=== PATIENT | male | born 1970 | race Hispanic/Latino ===

== ENCOUNTER 2022-11-12 05:40 | Day surgery (SDC) | payer OTHER ==
[2022-11-10 11:15] LABS: Absolute Lymphocytes (CBC) 1.8 K/uL (0.7-4.9); Hematocrit 45.9 % (39.6-49.0); Lymphocytes % 21.3 % (15.3-44.8); MCV 92.4 fL (80-100); MPV 9.1 fL (7.6-11.3); RBC Red Blood Cell Count 4.97 M/uL (4.33-5.43)
--- NOTE | 2022-11-10 11:27 | RAD REPORT ---
EXAM DESCRIPTION: Viola King And Lat (2 Views)11/10/2022 11:15 am CLINICAL HISTORY: Preop the gallbladder surgery Hypertension COMPARISON: None FINDINGS: The lungs appear clear of acute infiltrate. Heart is normal size
[2022-11-10 11:33] LABS: Bilirubin Direct 0.1 mg/dL (0-0.2); Bilirubin Total 0.3 mg/dL (0.2-1.0); Potassium 4.4 mmol/L (3.5-5.1); Protein, Total 7.4 g/dL (6.4-8.2)
--- NOTE | 2022-11-10 14:55 | EKG ---
Test Date: 2022-11-10 Test Time: 10:52:03 Information Assurance Manager: BERTA MEASUREMENT RESULTS: Intervals: Rate: 73 [place]: 186 QRSD: 88 QT: 352 QTc: 387 [place]: P: 58 AZ: 186 QRS: 39 T: 53 INTERPRETIVE STATEMENTS: Normal sinus rhythm Normal ECG No previous ECG available for comparison Electronically Signed On 11-10-22 14:54:47 [employer] CAR [employer] by Vance Hoyt
[2022-11-12] MEDS ORDERED: NA CHLORIDE 0.9% 1,000 ML ONE (06:11)
[2022-11-12] MEDS ORDERED: CELECOXIB 100 MG CAPSULE ONE (07:05)
[2022-11-12] MEDS ORDERED: ACETAMINOPHEN 500 MG TAB ONE (07:06)
[2022-11-12] MEDS: CEFOXITIN SODIUM 1 GM/VIAL ONE ×2 (07:10→07:45)
[2022-11-12] MEDS ORDERED: ROCURONIUM 50 MG/5 ML VIAL IV ONE (07:14)
[2022-11-12] MEDS ORDERED: FENTANYL CITR 100 MCG/2 ML ONE (07:14)
[2022-11-12] MEDS ORDERED: MIDAZOLAM HCL 2 MG/2 ML INJ ONE (07:14)
[2022-11-12] MEDS ORDERED: propofoL 200 MG/20 ML VIAL IV ONE (07:14)
[2022-11-12] MEDS ORDERED: LIDOCAINE 1% MPF 5 ML VIAL ONE (07:15)
[2022-11-12] MEDS ORDERED: NS 0.9% VIAL 10 ML ONE (07:39)
[2022-11-12] MEDS ORDERED: dexAMETHasone 10 MG/ML VIAL ONE (07:51)
[2022-11-12] MEDS ORDERED: ONDANSETRON 4 MG/2 ML VIAL ONE (07:51)
[2022-11-12] MEDS ORDERED: KETOROLAC 30 MG/ML INJ ONE (07:51)
[2022-11-12] MEDS ORDERED: NEOSTIGMINE 1 MG/ML -5 ML ONE (08:00)
[2022-11-12] MEDS ORDERED: GLYCOPYRROLATE 0.2 MG/ML SYR ONE (08:00)
[2022-11-12] MEDS ORDERED: EPHEDRINE SULF 50 MG/ML VIAL ONE (08:04)
--- NOTE | 2022-11-12 08:09 | P.BOP ---
Preoperative diagnosis: acute cholecystitis, symptomatic cholelithiasis Postoperative diagnosis: same Primary procedure: Laparoscopic cholecystectomy Crester: ALLAN REYES ([employer]CH[employer]) Estimated blood loss: <10cc Specimen: gb Findings: as above Anesthesia: General Complications: None Transferred to: Recovery Room Condition: Good
[2022-11-12] MEDS: HYDROMORPHONE HCL 1 MG/ML INJ ONE ×2 (08:33→08:41)
[2022-11-12] MEDS ORDERED: HYDROCODONE/APAP 7.5/325 MG TAB ONE (09:23)
[2022-11-12 09:40] VITALS: BP 101/56; TEMP 98; O2SAT 97
--- NOTE | 2022-11-12 10:45 | OP ---
Date of Procedure: 11/12/2022 Surgeon: Vince Beasley MD Preoperative Diagnoses: Acute cholecystitis, symptomatic cholelithiasis. Postoperative Diagnoses: Acute cholecystitis, symptomatic cholelithiasis. Procedure: Laparoscopic cholecystectomy. Estimated Blood Loss: Less than 10 mL. Complications: None. Anesthesia: General plus local. Finding: As above. Indication: This is the case of a male, who comes to us with above diagnoses. Fully explained the b enefits, alternatives, and risks, which include, but not limited to infection, bleeding, damage to ad jacent structures, anesthesia complication, choledocholithiasis, bile leak, pancreatitis, IA, and ani n . He also understands this may not relieve any symptoms. He might need more than one surgica l intervention. We explained the surgery in Bahraini and Lao to him and his family member, his co maynor. He signed a consent. Procedure In Detail: The patient was brought to the operating room, placed in supine position. Anes thesia was done without complication. Abdominal area was prepped and draped in the usual sterile fas hion. Marcaine 0.5% was injected for local anesthetic followed by sharp incision of the skin in the infraumbilical region. Incision was carried down to fascia, which was opened under direct vision. P eritoneum was encountered, opened under direct vision. Vicryl #1 placed inside the fascia. Carmen t rocar was carefully introduced. Pneumoperitoneum was obtained. I placed 3 more trocars, 5 mm each o ne of them in the epigastric right upper quadrant area under direct visualization. This allowed me t o put a grasper in the fundus of the gallbladder, another grasper in the infundibulum, retracting the gallbladder in the inferolateral fashion, exposing the triangle of Calot, and obtaining critical vie w. Cystic duct and cystic artery were clearly isolated, free circumferentially and a connection betw een those and the gallbladder were clearly identified. I proceeded to ligate those by using at least 3 clips proximal, 1 clip distal, ligation in middle. Same was done with the cystic artery. No bile leak, no bleeding. The gallbladder was removed from liver using Bovie cauterizer and removed from a bdominal cavity using EndoCatch through the umbilical incision. The area was inspected once again. No bile leak, no bleeding. At that moment, I proceeded to remove the trocars under direct vision. D eflated the pneumoperitoneum. Closed the fascia with #1 Vicryl. Irrigated the subcutaneous tissue, closed that with 3-0 chromic and skin in a subcuticular fashion with 3-0 chromic and Steri-Strips on top. Sponge count, instrument counts correct. The patient tolerated the procedure well. The patien t was sent to recovery in stable condition. ZHOU/JILILAN Voice ID: [id number] Report ID: [id number]
--- NOTE | 2022-11-12 10:45 | DS ---
Diagnoses: Acute cholecystitis, symptomatic cholelithiasis. Procedure: Laparoscopic cholecystectomy. Disposition: Home. Activity: As tolerated. No heavy lifting. Plan: Followup in my office in 1 week. Call for appointment [phone]. Keep area dry for 48 hours, then may shower. Keep Steri-Strips intact. ZHOU/JILLIAN Voice ID: [id number] Report ID: [id number]
== END 2022-11-12 10:35 | disposition home or self-care (01) ==
LOC: PRE 05:40
PROVIDERS: ATTEND Surgery
PROC: 0FT44ZZ Resection of Gallbladder, Percutaneous Endoscopic Approach (ICD-10-PCS; principal; 2022-11-12 07:30)
DX: K80.10 Calculus of gallbladder with chronic cholecystitis without obstruction (principal)
CPT/HCPCS: 93005; 85025; 80048; 36415; 82150; 82947 ×2; 80076; 88304; 83690; 71046; 47562; J2704; J2001; J2250; J3010; J1100; A4216; J1170; J2710; J7030; J0694; J2405

== ENCOUNTER 2022-12-21 12:50 | Emergency (ER) | payer OTHER ==
--- OUTSIDE RECORDS SUMMARY | 2022-12-21 13:03 | XMS REPORT | Continuity of Care Document ---
:1970 Author Organization [facility] t Address [address] [place] [address] Care Team Providers Name Role Phone Unavailable Unavailable Unavailable Problems This patient has no known problems. Allergies, Adverse Reactions, Alerts This patient has no known allergies or adverse reactions. Medications This patient has no known medications. Procedures This patient has no known procedures. Encounters Start End Encounter Admission Attending Care Care Encounter Source Date/Time Date/Time Type Type Clinicians Facility Department ID 2022-12-03 2022-12-03 Outpatient [facility] [id number] Eduardo 13:55:02 13:55:02 [id number] F Stephen 2022-10-03 2022-10-03 Outpatient [facility] [id number] Eduardo 15:10:29 15:10:29 [id number] F Stephen Results Test Description Test Time Test Comments Results Result Comments Source COMPREHENSIVE METABOLIC PANEL 2022-07-10 05:57:55 Test Item Value Reference Range Interpretation Comme nts GLUCOSE (test code = 7) 113 MG/DL 70-99 H BUN (test code = 2208) 16 MG/DL 6-20 CREATININE (test code = 0.91 MG/DL 0.80-1.40 2213) eGFR (2020 CKD-EPI) (test 101 ML/MIN/1.73 >60 code = 67527) CALC BUN/CREAT (test code = 18 RATIO -2234) SODIUM (test code = 2231) 142 MEQ/L 133-146 POTASSIUM (test code = 4.4 MEQ/L 3.5-5.4 2227) CHLORIDE (test code = 2215) 102 MEQ/L 95-107 CARBON DIOXIDE (test code = 25 MEQ/L -2205) CALCIUM (test code = 2209) 9.9 MG/DL 8.5-10.5 PROTEIN, TOTAL (test code = 7.7 G/DL 6.1-8.3 2228) ALBUMIN (test code = 220) 5.1 G/DL 3.5-5.2 CALC GLOBULIN (test code = 2.6 G/DL 1.9-3.7 2239) CALC A/G RATIO (test code = 2.0 RATIO 1.0-2.6 2233) BILIRUBIN, TOTAL (test code 0.5 MG/DL See_Comment [Automated message] The = 2206) system which ge nerated this result transmit chaitanya reference range: <=1.2. T he reference range was not u sed to interpret this result as normal/abnormal . ALKALINE PHOSPHATASE (test 110 U/L 40-121 code = 2203) AST (test code = 2218) 27 U/L 9-50 ALT (test code = 2219) 29 U/L 5-50 UNLE SS OTHERWISE INDICATED, ALL TESTING PER FORMED [facility]IN[facility] PATH [facility], [facility]. [address] [place] [address] 97 LABORATORY DIRE CTOR: BANDAR DIAZ M.D. CLIA NUMBER [id number] [facility] [place]. [id number] HEMOGLOBIN [id number] 05:06:51 Test Item Value Reference Range Interpretation Comments HEMOGLOBIN A1c (test code = 22466) 6.1 % 4.2-5.6 H COMPREHENSIVE METABOLIC [id number] 06:12:23 Test Item Value Reference Range Interpretation Comments GLUCOSE (test code = 118 MG/DL 70-99 H 2216) BUN (test code = 12 MG/DL 6-20 2207) CREATININE (test 0.84 MG/DL 0.80-1.40 code = 2213) eGFR (2020 CKD-EPI) 106 >60 (test code = 69301) ML/MIN/1.73 CALC BUN/CREAT (test 14 RATIO 6-28 code = 2235) SODIUM (test code = 145 MEQ/L 312-693 4175) POTASSIUM (test code 4.0 MEQ/L 3.5-5.4 = 2227) CHLORIDE (test code 103 MEQ/L 95-107 = 2214) CARBON DIOXIDE (test 23 MEQ/L 19-31 code = 2206) CALCIUM (test code = 10.0 MG/DL 8.5-10.5 2209) PROTEIN, TOTAL (test 7.3 G/DL 6.1-8.3 code = 222) ALBUMIN (test code = 4.8 G/DL 3.5-5.2 2200) CALC GLOBULIN (test 2.5 G/DL 1.9-3.7 code = 2240) CALC A/G RATIO (test 1.9 RATIO 1.0-2.6 code = 2234) BILIRUBIN, TOTAL 0.5 MG/DL See_Comment [Automated message] (test code = 2206) The syste m which generated this result transmit chaitanya reference range : <=1.2. The refe rence range was not u sed to interpret th is result as normal/abnormal . ALKALINE PHOSPHATASE 111 U/L 40-121 (test code = 2203) AST (test code = 47 U/L 9-50 2217) ALT (test code = 55 U/L 5-50 H 2218) LIPID [id number] 06:12:23 Test Item Value Reference Range Interpretation Comments CHOLESTEROL (test 152 MG/DL <200 code = 2210) TRIGLYCERIDES (test 104 MG/DL <150 code = 2232) HDL CHOLESTEROL (test 60 MG/DL >39 code = 2220) CALC LDL CHOL (test 73 MG/DL <100 NOTE: C ALCULATED LDL code = 2237) IS BASED ON MICHAEL-ADAMS METHOD WHICHINCLUDES ADJUSTABLE TRIGLYCERIDE:VL DL CHOLESTEROL RAT IO.THIS FACTOR VARIES B Y MEASURED TRIGLY CERIDE AND NON-HDLCHOL ESTEROL CONCENTRATIONS WITH INCREASED CALCU LATED LDL SEENIN HIGH ER TRIGLYCERIDE OR LOWER NON-HDL SPECIME NS. FOR MOREINFORMATION , SEE CLIENT ANNOUNCE MENT AT [email or web address] RATIO LDL/HDL 1.22 RATIO <3.55 (test code = 2238) ALBUMIN/CREATININE RATIO, URINE, [id number] 04:51:12 Test Item Value Reference Range Interpretation Comments CREATININE, URINE, 209.6 MG/DL NOT ESTAB RANDOM (test code = 2071) ALBUMIN, URINE, 0.9 MG/DL NOT ESTAB RANDOM (test code = 85217) CALC ALBUMIN/CREAT, 4 MG/G <30 Note: RND (test code = Albumin/Cre atinine 72799) ratio reference interval reflec ts ADA and NKF guideli danielle. HEPATITIS PANEL, [id number] 04:30:11 Test Item Value Reference Range Interpretation Comments HEPATITIS A IgM (test NON-REACTIVE NON-REACTIVE code = 50253) HEPATITIS B CORE IgM NON-REACTIVE NON-REACTIVE (test code = 4644) HEPATITIS B SURF AG NON-REACTIVE NON-REACTIVE (test code = 2739) HEPATITIS C ANTIBODY NON-REACTIVE NON-REACTIVE (test code = 4675) INTERPRETATION (NOTE) Hepatitis A HEPATITIS A: (test serology shows no code = 2552) evidence of acu te hepatitis A. INTERPRETATION (NOTE) Hepatitis B HEPATITIS B: (test serology shows no code = 77803) evidence of ac tarun hepatitis B and no indication of exposure to hepatitis B vir us in the previous si xto eight months. INTERPRETATION (NOTE) Hepatitis C HEPATITIS C: (test serology shows no code = 35627) evidence of ex posure to hepatitisC v irus at this time. I t can take up to 12 m onths after exposure tothe hepatitis C vir us for antibodies to become detectab le in the blood in ce rtain patients. UNLES S OTHERWISE INDIC ATED, ALL TESTING PERFORMED [facility], [facility]. [address] [place] [id number] [place] [address] DIRECTOR: BANDAR DIAZ M.D. CLIA NUMBER [id number] [place] [id number] HEMOGLOBIN [id number] 03:33:23 Test Item Value Reference Range Interpretation Comments HEMOGLOBIN A1c (test 8.8 % 4.2-5.6 H AMERIC AN DIABETES code = 55364) ASSOCIATION IDELINES FOR HGB A1C: PREDIABETES/INC REASED RISK . . . . . . . 5.7 -6.4% DIAGNOSIS OF DI ABETES . . . . . . . . . >=6 .5% WITH CONFIRMATION OR APPROPRIATE SYMPTOMS NOTE: ASSAY MAY BE AFFECTED BY HEMOGLOBINOPATH IES (SICKLE CELL ANEMIA, S- C DISEASE, OTHERS) OR RIKI FICIALLY LOWERED BY DECR EASED RED CELL SURVIVAL ( HEMOLYTIC ANEMIAS, BLOOD LOSS, ETC.). CONSIDER ALTERN ATE TESTING OR LABORATORY C ONSULTATION.
--- NOTE | 2022-12-21 15:08 | RAD REPORT ---
EXAM DESCRIPTION: RAD - Foot Left 3 View - 12/21/2022 3:01 pm CLINICAL HISTORY: PAIN COMPARISON: No comparisons FINDINGS: Small calcaneal spurs. Mild soft tissue swelling is evident. No fracture or dislocation. N o aggressive marrow lesion.
--- NOTE | 2022-12-21 16:06 | RAD REPORT ---
EXAM DESCRIPTION: US - Extremity Venous Uni Ltd - 12/21/2022 3:55 pm CLINICAL HISTORY: PAIN Leg swelling and edema. COMPARISON: No comparisons FINDINGS: Left lower extremity venous system was interrogated with Doppler technique. Normal flow, c ompressibility and augmentation was noted. There is no DVT present. IMPRESSION: No evidence of left lower extremity deep venous thrombosis.
--- NOTE | 2022-12-21 16:39 | EDPHYS ---
Physician Documentation [facility] Name: Brad Desouza Age: 52 yrs Sex: Male : 1970 Arrival Date: 12/21/2022 Time: 12:52 Bed 11 Private MD: ED Physician Mahendra Oreilly HPI: 12/21 14:00 This 52 yrs old Male presents to ER via Ambulatory with complaints of Leg cp Swelling - redness, Foot Swelling. 14:00 The patient presents with pain, that is acute. The complaints affect the left heel and cp bottom of left foot. Context: resulted from an unknown cause, the patient can fully bear weight, the patient is able to ambulate, with mild difficulty, Problem is a result from a previous injury: No. Onset: The symptoms/episode began/occurred 4 day(s) ago. Modifying factors: the symptoms are aggravated by weight bearing. Associated signs and symptoms: Pertinent positives: calf tenderness, swelling, Pertinent negatives fever, rash. Treatment prior to arrival includes: no previous treatment. Historical: - Allergies: 13:51 No Known Allergies; vg1 - Home Meds: 13:51 Metformin Oral [Active]; Lisinopril Oral [Active]; vg1 - PMHx: 13:51 Diabetes mellitus; Hypertensive disorder; vg1 - Immunization history:: Client reports receiving the 2nd dose of the Covid vaccine, Flu vaccine is up to date. - Social history:: Smoking status: Patient denies any tobacco usage or history of. ROS: 14:05 Constitutional: Negative for body aches, chills, fever, poor PO intake. cp 14:05 Eyes: Negative for injury, pain, redness, and discharge. cp 14:05 Neck: Negative for stiffness. 14:05 Cardiovascular: Negative for chest pain, edema, palpitations. 14:05 Respiratory: Negative for cough, shortness of breath, wheezing. 14:05 Back: Negative for pain at rest, pain with movement. 14:05 MS/extremity: Positive for pain, tenderness, of the left foot, Negative for injury or acute deformity. 14:05 All other systems are negative. Exam: 14:10 Constitutional: The patient appears in no acute distress, alert, awake, comfortable, cp non-toxic, well developed, well nourished. 14:10 Head/Face: Normocephalic, atraumatic. cp 14:10 Cardiovascular: Rate: normal, Pulses: Pulses are 2+ in left dorsalis pedis artery. cp 14:10 Respiratory: the patient does not display signs of respiratory distress, Respirations: cp normal. 14:10 Back: pain, is absent, ROM is normal. 14:10 Musculoskeletal/extremity: Extremities: noted in the proximal plantar surface and heel of left foot: pain, tenderness, There is no evidence of erythema, no open wounds noted, skin dry and scaly, mild swelling noted. Vital Signs: 13:46 BP 121 / 66; Pulse 79; Resp 15; Temp 98.6(O); Pulse Ox 100% on R/A; Weight 81.65 kg; vg1 Pain 0/10; 15:00 BP 111 / 74; Pulse 75; Resp 20 S; Pulse Ox 99% on R/A; Pain 0/10; kc6 MDM: 13:54 Patient medically screened. cp 14:00 Differential diagnosis: closed fracture, contusion, cellulitis. cp 16:38 Data reviewed: vital signs, nurses notes, radiologic studies, plain films, ultrasound. cp 16:38 Consideration of Admission/Observation Escalation of care including cp admission/observation considered. I considered the following discharge prescriptions or medication management in the emergency department Medications were administered in the Emergency Department. See MAR. Test considered but Not performed: Labs: CBC, BMP. Historians other than the Patient: Family Member: sister provides history with community outreach coordinator used. Care significantly affected by the following chronic conditions: Diabetes, Hypertension. 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 12/21 14:47 Order name: Glucose, Ancillary Testing; Complete Time: 15:12 EDMS 12/21 13:47 Order name: US Extremity Venous Unilateral Ltd cp 12/21 13:47 Order name: XRAY Foot LEFT 3 View; Complete Time: 15:12 cp 12/21 14:10 Order name: Accucheck Blood Glucose; Complete Time: 14:35 cp Administered Medications: 16:47 Drug: Ibuprofen 800 mg Route: PO; kc6 16:47 Follow up: Response: No adverse reaction kc6 16:47 Drug: Acetaminophen 650 mg Route: PO; kc6 16:47 Follow up: Response: No adverse reaction kc6 Disposition Summary: 12/21/22 16:38 Discharge Ordered Location: Home cp Problem: new cp Symptoms: have improved cp Condition: Stable cp Diagnosis - Pain in left foot cp Followup: cp - With: Ho You DPM - When: 2 - 3 days - Reason: Recheck today's complaints Discharge Instructions: - Discharge Summary Sheet cp - Foot Pain cp Forms: - Medication Reconciliation Form cp - Thank You Letter cp - Antibiotic Education cp - Prescription Opioid Use cp Prescriptions: - Diclofenac Sodium 75 mg Oral Tablet Sustained Release - take 1 tablet by ORAL route 2 times per day; 30 tablet; Refills: 0, Product cp Selection Permitted Addendum: 12/23/2022 01:04 Co-signature as Attending Physician, Mahendra Oreilly MD I reviewed the patient's care r n provided by the Advanced Practice Provider and agree with the diagnosis and treatment plan. Signatures: Dispatcher [employer] Mahendra Mejia MD MD rn Page, Corey, PA PA cp Garcia, Victoria RN RN vg1 Geovanna Summers RN RN kc6
--- NOTE | 2022-12-21 16:39 | ER ---
Nurse's Notes [facility] Name: Brad Desouza Age: 52 yrs Sex: Male : 1970 Arrival Date: 12/21/2022 Time: 12:52 Bed 11 Private MD: Diagnosis: Pain in left foot Presentation: 12/21 13:46 Chief complaint: Patient states: Left foot swelling stating 'feels like knives" x 4 vg1 days. Coronavirus screen: Vaccine status: Patient reports receiving the 2nd dose of the covid vaccine. Client denies travel out of the [place] in the last 14 days. Ebola Screen: Patient negative for fever greater than or equal to 101.5 degrees Fahrenheit, and additional compatible Ebola Virus Disease symptoms. Initial Sepsis Screen: Does the patient meet any 2 criteria? No. Patient's initial sepsis screen is negative. Does the patient have a suspected source of infection? No. Patient's initial sepsis screen is negative. Risk Assessment: Do you want to hurt yourself or someone else? Patient reports no desire to harm self or others. Onset of symptoms was December 17, 2022. 13:46 Method Of Arrival: Ambulatory vg1 13:46 Acuity: MAURICE 3 vg1 Triage Assessment: 13:51 General: Appears comfortable, Behavior is calm, cooperative. Pain: Denies pain. Neuro: vg1 Level of Consciousness is awake, alert, obeys commands, Oriented to person, place, time, situation. Derm: Skin is intact, Skin is pink, warm \\T\\ dry. Left foot. Historical: - Allergies: 13:51 No Known Allergies; vg1 - Home Meds: 13:51 Metformin Oral [Active]; Lisinopril Oral [Active]; vg1 - PMHx: 13:51 Diabetes mellitus; Hypertensive disorder; vg1 - Immunization history:: Client reports receiving the 2nd dose of the Covid vaccine, Flu vaccine is up to date. - Social history:: Smoking status: Patient denies any tobacco usage or history of. Screenin:44 [facility] ED Fall Risk Assessment (Adult) History of falling in the last 3 months, kc6 including since admission No falls in past 3 months (0 pts) Confusion or Disorientation No (0 pts) Intoxicated or Sedated No (0 pts) Impaired Gait No (0 pts) Mobility Assist Device Used No (0 pt) Altered Elimination No (0 pt) Score/Fall Risk Level 0 - 2 = Low Risk Oriented to surroundings, Maintained a safe environment, Educated pt \\T\\ family on fall prevention, incl call for assistance when getting out of bed, Assessed \\T\\ reinforced patient's understanding of fall precautions, Hourly rounding (assess needs \\T\\ fall precautionary measures) done. Abuse screen: Denies threats or abuse. Denies injuries from another. Nutritional screening: No deficits noted. Tuberculosis screening: No symptoms or risk factors identified. Assessment: 14:00 General: Appears in no apparent distress. comfortable, Behavior is calm, cooperative, kc6 appropriate for age. Pain: Denies pain. Neuro: [place]ivais Agitation-Sedation Scale (RASS): 0 - Alert and Calm Level of Consciousness is awake, alert, obeys commands, Oriented to person, place, time, situation, Appropriate for age. Cardiovascular: Capillary refill < 3 seconds. Respiratory: Airway is patent Trachea midline Respiratory effort is even, unlabored, Respiratory pattern is regular, symmetrical. GI: No signs and/or symptoms were reported involving the gastrointestinal system. : No signs and/or symptoms were reported regarding the genitourinary system. EENT: No signs and/or symptoms were reported regarding the EENT system. Derm: No signs and/or symptoms reported regarding the dermatologic system. Skin is intact, Skin is pink, warm \\T\\ dry. Musculoskeletal: No signs and/or symptoms reported regarding the musculoskeletal system. Circulation, motion, and sensation intact. Capillary refill < 3 seconds, Range of motion: intact in all extremities. 15:00 Reassessment: Patient appears in no apparent distress at this time. No changes from kc6 previously documented assessment. Patient and/or family updated on plan of care and expected duration. Pain level reassessed. Patient is alert, oriented x 3, equal unlabored respirations, skin warm/dry/pink. 16:00 Reassessment: Patient appears in no apparent distress at this time. No changes from kc6 previously documented assessment. Patient and/or family updated on plan of care and expected duration. Pain level reassessed. Patient is alert, oriented x 3, equal unlabored respirations, skin warm/dry/pink. Patient denies pain at this time. Vital Signs: 13:46 BP 121 / 66; Pulse 79; Resp 15; Temp 98.6(O); Pulse Ox 100% on R/A; Weight 81.65 kg; vg1 Pain 0/10; 15:00 BP 111 / 74; Pulse 75; Resp 20 S; Pulse Ox 99% on R/A; Pain 0/10; kc6 ED Course: 12:52 Patient arrived in ED. as 13:11 Alvaro Arenas PA is PHCP. cp 13:11 Mahendra Oreilly MD is Attending Physician. cp 13:40 Mahendra Oreilly MD is Attending Physician. cp 13:51 Triage completed. vg1 13:51 Arm band placed on. vg1 13:57 Geovanna Summers, CELIA is Primary Nurse. kc6 14:44 Patient has correct armband on for positive identification. Bed in low position. Call kc6 light in reach. Side rails up X 1. Adult w/ patient. 15:03 XRAY Foot LEFT 3 View In Process Unspecified. EDMS 15:57 US Extremity Venous Unilateral Ltd In Process Unspecified. EDMS 16:38 Ho You DPM is Referral Physician. cp 16:47 No provider procedures requiring assistance completed. Patient did not have IV access kc6 during this emergency room visit. Administered Medications: 16:47 Drug: Ibuprofen 800 mg Route: PO; kc6 16:47 Follow up: Response: No adverse reaction kc6 16:47 Drug: Acetaminophen 650 mg Route: PO; kc6 16:47 Follow up: Response: No adverse reaction kc6 Medication: 16:47 VIS not applicable for this client. kc6 Outcome: 16:38 Discharge ordered by MD. cp 16:47 Discharged to home ambulatory, with family. kc6 16:47 Condition: stable 16:47 Discharge instructions given to patient, family, Instructed on discharge instructions, follow up and referral plans. medication usage, Demonstrated understanding of instructions, follow-up care, medications, Prescriptions given X 1. 16:47 Patient left the ED. kc6 Signatures: Dispatcher [employer] EDMS Tsering Beasley as Alvaro Arenas PA PA cp Garcia, Victoria, RN RN vg1 Geovanna Summers, CELIA RN kc6
[2022-12-21] MEDS ORDERED: ACETAMINOPHEN 325 MG TABLET ONE (16:44)
[2022-12-21] MEDS ORDERED: IBUPROFEN 400 MG TAB ONE (16:45)
[2022-12-21 16:52] VITALS: TEMP 98.6
[2022-12-21 16:54] VITALS: BP 111/74; O2SAT 99
== END 2022-12-21 16:47 | disposition home or self-care (01) ==
LOC: ER 12:50
DX: M79.672 Pain in left foot (principal); I10 Essential (primary) hypertension; E11.9 Type 2 diabetes mellitus without complications
CPT/HCPCS: 82947; 93971; 99283

== ENCOUNTER 2023-04-12 22:22 | Emergency (ER) | payer OTHER ==
--- OUTSIDE RECORDS SUMMARY | 2023-04-12 22:32 | XMS REPORT | Continuity of Care Document ---
:1970 Author Organization [facility] t Address [address] [facility] [place] [address] Care Team Providers Name Role Phone Unavailable Unavailable Unavailable Problems This patient has no known problems. Allergies, Adverse Reactions, Alerts This patient has no known allergies or adverse reactions. Medications This patient has no known medications. Procedures This patient has no known procedures. Encounters Start End Encounter Admission Attending Care Care Encounter Source Date/Time Date/Time Type Type Clinicians Facility Department ID 2023-01-14 2023-01-14 Outpatient [facility] [id number] Eduardo 09:28:02 09:28:02 [id number] F Stephen 2023-01-13 2023-01-[address] [facility] [id number] Eduardo 09:48:15 09:48:15 [id number] F Stephen 2022-12-03 2022-12-03 Outpatient [facility] [id number] Eduardo 13:55:02 13:55:02 [id number] F Stephen 2022-10-03 2022-10-03 Outpatient [facility] [id number] Eduardo 15:10:29 15:10:[id number] [place] [address] Results Test Description Test Time Test Comments Results Result Comments Source LIPID PANEL 2023-01-15 06:59:50 Test Item Value Reference Range Interpretation Comme nts CHOLESTEROL (test code = 2210) 142 MG/DL <200 TRIGLYCERIDES (test code = 2232) 83 MG/DL <150 HDL CHOLESTEROL (test code = 57 MG/DL >39 0) CALC LDL CHOL (test code = 223) 68 MG/DL <100 NOTE: CALCULATED LDL IS BASED ON MICHAEL-ADAMS METHOD WHICHINCLUDES A DJUSTABLE TRIGLYCERIDE:VL DL CHOLESTEROL RATIO.THIS FACT OR VARIES BY MEASURED TRIGLY CERIDE AND NON-HDLCHOLESTE ROL CONCENTRATIONS WITH INCREASED CALCULATED LDL SEENIN HIGHER T RIGLYCERIDE OR LOWER NON-HDL S PECIMENS. FOR MOREINFORMATION , SEE CLIENT ANNOUNCEMENT AT [email or web address] RATIO LDL/HDL (test code = 1.19 RATIO <3.55 2237) COMPREHENSIVE METABOLIC [id number] 06:59:50 Test Item Value Reference Range Interpretation Comments GLUCOSE (test code = 107 MG/DL 70-99 H 2216) BUN (test code = 11 MG/DL 6-20 2207) CREATININE (test 0.88 MG/DL 0.80-1.40 code = 2214) eGFR (2020 CKD-EPI) 103 >60 (test code = 78239) ML/MIN/1.73 CALC BUN/CREAT (test 13 RATIO 6-28 code = 2235) SODIUM (test code = 139 MEQ/L 140-285 2223) POTASSIUM (test code 4.2 MEQ/L 3.5-5.4 = 2227) CHLORIDE (test code 101 MEQ/L 95-107 = 2214) CARBON DIOXIDE (test 26 MEQ/L 19-31 code = 2206) CALCIUM (test code = 9.6 MG/DL 8.5-10.5 2208) PROTEIN, TOTAL (test 7.0 G/DL 6.1-8.3 code = 222) ALBUMIN (test code = 4.8 G/DL 3.5-5.2 2200) CALC GLOBULIN (test 2.2 G/DL 1.9-3.7 code = 2240) CALC A/G RATIO (test 2.2 RATIO 1.0-2.6 code = 2234) BILIRUBIN, TOTAL 0.6 MG/DL See_Comment [Automated message] (test code = 2207) The syste m which generated this result transmit chaitanya reference range : <=1.2. The refe rence range was not u sed to interpret th is result as normal/abnormal . ALKALINE PHOSPHATASE 108 U/L 40-121 (test code = 2204) AST (test code = 22 U/L 9-50 2217) ALT (test code = 29 U/L 5-50 CPL weiner s 2218) important patho logy staff changes effective 01/28/2023. New pathology staff will provide uninterrupted, excellent patie nt care and clini catarino consultation. S ee URL: [email or web address]. UNL ESS OTHERWISE INDIC ATED, ALL TESTING PERFORMED AT CLINICAL PATH[facility] [place]. [address] [facility], [place] CLIA: [id number], CAP: [id number] HEMOGLOBIN [id number] 02:28:07 Test Item Value Reference Range Interpretation Comments HEMOGLOBIN A1c (test code = 86931) 5.9 % 4.2-5.6 H COMPREHENSIVE METABOLIC [id number] 05:57:55 Test Item Value Reference Range Interpretation Comments GLUCOSE (test code = 113 MG/DL 70-99 H 2216) BUN (test code = 16 MG/DL 6-20 2207) CREATININE (test 0.91 MG/DL 0.80-1.40 code = 221) eGFR (2020 CKD-EPI) 101 >60 (test code = 85952) ML/MIN/1.73 CALC BUN/CREAT (test 18 RATIO 6-28 code = 2235) SODIUM (test code = 142 MEQ/L 688-212 4014) POTASSIUM (test code 4.4 MEQ/L 3.5-5.4 = 8) CHLORIDE (test code 102 MEQ/L 95-107 = 221) CARBON DIOXIDE (test 25 MEQ/L 19-31 code = 2206) CALCIUM (test code = 9.9 MG/DL 8.5-10.5 2208) PROTEIN, TOTAL (test 7.7 G/DL 6.1-8.3 code = 2229) ALBUMIN (test code = 5.1 G/DL 3.5-5.2 2200) CALC GLOBULIN (test 2.6 G/DL 1.9-3.7 code = 2240) CALC A/G RATIO (test 2.0 RATIO 1.0-2.6 code = 2234) BILIRUBIN, TOTAL 0.5 MG/DL See_Comment [Automated message] (test code = 2207) The syste m which generated this result transmitted ref erence range: <=1.2. T he reference range was not used to int erpret this result as normal/abnormal . ALKALINE PHOSPHATASE 110 U/L 40-121 (test code = 2204) AST (test code = 27 U/L 9-50 2218) ALT (test code = 29 U/L 5-50 UNLESS OT HERWISE 2218) INDICATED, ALL TESTING PERFORM [facility] [place]. [address] [place] [address] [facility] DIRECTOR: BANDAR DIAZ M.D. CLIA NUMBER [id number] CAP ACCREDITATION N O. [id number] HEMOGLOBIN [id number] 05:06:51 Test Item Value Reference Range Interpretation Comments HEMOGLOBIN A1c (test code = 39581) 6.1 % 4.2-5.6 H COMPREHENSIVE METABOLIC [id number] 06:12:23 Test Item Value Reference Range Interpretation Comments GLUCOSE (test code = 118 MG/DL 70-99 H 2216) BUN (test code = 12 MG/DL 6-20 2207) CREATININE (test 0.84 MG/DL 0.80-1.40 code = 2214) eGFR (2020 CKD-EPI) 106 >60 (test code = 70564) ML/MIN/1.73 CALC BUN/CREAT (test 14 RATIO 6-28 code = 2235) SODIUM (test code = 145 MEQ/L 717-454 2718) POTASSIUM (test code 4.0 MEQ/L 3.5-5.4 = 8) CHLORIDE (test code 103 MEQ/L 95-107 = 2215) CARBON DIOXIDE (test 23 MEQ/L 19-31 code = 2206) CALCIUM (test code = 10.0 MG/DL 8.5-10.5 2208) PROTEIN, TOTAL (test 7.3 G/DL 6.1-8.3 code = 2229) ALBUMIN (test code = 4.8 G/DL 3.5-5.2 2200) CALC GLOBULIN (test 2.5 G/DL 1.9-3.7 code = 2240) CALC A/G RATIO (test 1.9 RATIO 1.0-2.6 code = 2234) BILIRUBIN, TOTAL 0.5 MG/DL See_Comment [Automated message] (test code = 2207) The syste m which generated this result transmit chaitanya reference range : <=1.2. The refe rence range was not u sed to interpret th is result as normal/abnormal . ALKALINE PHOSPHATASE 111 U/L 40-121 (test code = 2204) AST (test code = 47 U/L 9-50 2217) ALT (test code = 55 U/L 5-50 H 2218) LIPID [id number] 06:12:23 Test Item Value Reference Range Interpretation [...] MOREINFORMATION , SEE CLIENT ANNOUNCE MENT AT [email or web address] RISK RATIO LDL/HDL 1.22 RATIO <3.55 (test code = 2238) ALBUMIN/CREATININE RATIO, URINE, [id number] 04:51:12 Test Item Value Reference Range Interpretation Comments CREATININE, URINE, 209.6 MG/DL NOT ESTAB RANDOM (test code = 2072) ALBUMIN, URINE, 0.9 MG/DL NOT ESTAB RANDOM (test code = 35618) CALC ALBUMIN/CREAT, 4 MG/G <30 Note: RND (test code = Albumin/Cre atinine 39687) ratio reference interval reflec ts ADA and NKF guideli danielle. HEPATITIS PANEL, [id number] 04:30:11 Test Item Value Reference Range Interpretation Comments HEPATITIS A IgM (test NON-REACTIVE NON-REACTIVE code = 62832) HEPATITIS B CORE IgM NON-REACTIVE NON-REACTIVE (test code = 4644) HEPATITIS B SURF AG NON-REACTIVE NON-REACTIVE (test code = 2739) HEPATITIS C ANTIBODY NON-REACTIVE NON-REACTIVE (test code = 4675) INTERPRETATION (NOTE) Hepatitis A HEPATITIS A: (test serology shows no code = 2552) evidence of acu te hepatitis A. INTERPRETATION (NOTE) Hepatitis B HEPATITIS B: (test serology shows no code = 67735) evidence of ac [place] hepatitis B and no indication of exposure to hepatitis B vir us in the previous si xto eight months. INTERPRETATION (NOTE) Hepatitis C HEPATITIS C: (test serology shows no code = 79141) evidence of ex posure to hepatitisC v irus at this time. I t can take up to 12 m onths after exposure tothe hepatitis C vir us for antibodies to become detectab le in the blood in ce rtain patients. UNLES S OTHERWISE INDIC ATED, ALL TESTING PERFORMED [facility], [place]. [address] [facility] [place] [address] [facility] DIRECTOR: BANDAR DIAZ M.D. [place] NUMBER [id number] [place] [id number] HEMOGLOBIN [id number] 03:33:23 Test Item Value Reference Range Interpretation Comments HEMOGLOBIN A1c (test 8.8 % 4.2-5.6 H [employer] code = 74094) ASSOCIATION [employer] FOR HGB A1C: PREDIABETES/INC REASED [...]
[2023-04-12 23:34] LABS: Absolute Lymphocytes (CBC) 2.5 K/uL (0.7-4.9); Hematocrit 47.1 % (39.6-49.0); Lymphocytes % 27.7 % (15.3-44.8); MCV 90.6 fL (80-100); MPV 10.4 fL (7.6-11.3); RBC Red Blood Cell Count 5.19 M/uL (4.33-5.43)
[2023-04-13 00:01] LABS: ALT/SGPT 25 U/L (16-61); Albumin 4.3 g/dL (3.4-5.0); Alkaline Phosphatase 102 U/L (45-117); BUN Blood Urea Nitrogen 16 mg/dL (7-18); Bicarbonate 29 mEq/L (21-32); Bilirubin Direct 0.1 mg/dL (0-0.2); Bilirubin Indirect, Calculated 0.7 mg/dL (0.2-0.8); Bilirubin Total 0.8 mg/dL (0.2-1.0); Glomerular Filtration Rate 84 ml/min (=/>90); Glucose Level 118 mg/dL (74-106); Sodium Level 138 mEq/L (136-145); Troponin High Sensitivity 3.4 pg/mL (<58.9)
[2023-04-13 00:17] LABS: AST/SGOT 28 U/L (15-37); Potassium 3.7 mEq/L (3.5-5.1)
[2023-04-13] MEDS ORDERED: LORAZEPAM 1 MG TABLET ONE (01:07)
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
[2023-04-13 07:45] VITALS: TEMP 98
[2023-04-13 07:50] VITALS: O2SAT 99
[2023-04-13 07:52] VITALS: BP 110/73
--- NOTE | 2023-04-13 11:43 | EKG ---
Test Date: 2023-04-12 Test Time: 23:07:02 Special Police: JIMI MEASUREMENT RESULTS: Intervals: Rate: 55 SD: 204 QRSD: 98 QT: 412 QTc: 394 [place]: P: 40 SD: 204 QRS: 21 T: 47 INTERPRETIVE STATEMENTS: Sinus bradycardia Otherwise normal ECG No previous ECG available for comparison Electronically Signed On 04-13-23 11:41:26 CDT by Te Wright
== END 2023-04-13 07:39 | disposition home or self-care (01) ==
LOC: ER 22:22
DX: F48.9 Nonpsychotic mental disorder, unspecified (principal); F20.9 Schizophrenia, unspecified; E11.9 Type 2 diabetes mellitus without complications; I10 Essential (primary) hypertension; Z79.84 Long term (current) use of oral hypoglycemic drugs; Z79.899 Other long term (current) drug therapy
CPT/HCPCS: 93005; 85025; 80048; 36415; 80076; 84484; 99284; G0480 ×3

== ENCOUNTER → 2024-01-04 | Emergency (ER) | payer OTHER ==
[~2024-01-04] MED LIST: POTASSIUM 25 MEQ EFFERV TAB ONE
--- OUTSIDE RECORDS SUMMARY | 2024-01-04 13:03 | XMS REPORT | Continuity of Care Document ---
Author Name Unknown Address [address] [place] [address] [facility] thconnect Address [address] [place] [address] Care Team Providers Care [facility] Staff Name Role Phone Unavailable Unavailable Unavailable Encounters Start Date/Time End Date/Time Encounter Type Admission Type Attending Clinicians Care Facility Care Department Encounter ID Source 2024-01-04 10:36:55 2024-01-04 10:36:55 Outpatient SFA SFA [id number] Eduardo Mitchell 2023-12-30 08:51:56 2023-12-30 08:51:56 Outpatient SFA SFA [id number] Eduardo Mitchell 2023-12-14 13:54:35 2023-12-14 13:54:35 Outpatient SFA SFA [id number] Eduardo Mitchell 2023-12-03 08:48:23 2023-12-03 08:48:23 Outpatient SFA SFA [id number] Eduardo Mitchell 2023-10-14 15:05:51 2023-10-14 15:05:51 Outpatient SFA SFA [id number] Eduardo Mitchell 2023-09-23 14:18:15 2023-09-23 14:18:15 Outpatient SFA SFA [id number] Eduardo Mitchell 2023-09-09 13:59:34 2023-09-09 13:59:34 Outpatient SFA SFA [id number] Eduardo Mitchell 2023-08-26 15:02:02 2023-08-26 15:02:02 Outpatient SFA SFA [id number] Eduardo Mitchell 2023-08-12 14:38:40 2023-08-12 14:38:40 Outpatient SFA SFA [id number] Eduardo Mitchell 2023-08-06 15:37:06 2023-08-06 15:37:06 Outpatient SFA SFA [id number] Eduardo Mitchell 2023-07-29 16:33:09 2023-07-29 16:33:09 Outpatient SFA SFA [id number] Eduardo Mitchell 2023-07-14 13:56:45 2023-07-14 13:56:45 Outpatient SFA SFA [id number] Eduardo Mitchell 2023-07-01 16:05:59 2023-07-01 16:05:59 Outpatient SFA SFA [id number] Eduardo Mitchell 2023-06-15 14:40:53 2023-06-15 14:40:53 Outpatient SFA SFA [id number] Eduardo Mitchell 2023-01-14 09:28:02 2023-01-14 09:28:02 Outpatient SFA SFA [id number] Eduardo Mitchell 2023-01-13 09:48:15 2023-01-13 09:48:15 Outpatient SFA SFA [id number] Eduardo Mitchell 2022-12-03 13:55:02 2022-12-03 13:55:02 Outpatient SFA SFA [id number] Eduardo Mitchell 2022-10-03 15:10:29 2022-10-03 15:10:29 Outpatient SFA SFA [id number] Eduardo Mitchell
--- NOTE | 2024-01-04 14:17 | EDPHYS ---
Physician Documentation [facility] Name: Brad Cisneros Age: 53 yrs Sex: Male : 1970 Arrival Date: 01/04/2024 Time: 12:59 Bed 18 Private MD: ED Physician Alvaro Stahl HPI: 01/04 14:13 This 53 yrs old Male presents to ER via Law Enforcement with complaints of alma Mental eval. 14:13 The patient presents to the emergency department with anxiety, depression. Onset: The alma symptoms/episode began/occurred 2 day(s) ago. Past psychiatric history: Prior diagnosis: schizophrenia, Psychiatric medications include: none. Associated signs and symptoms: The patient has no apparent associated signs or symptoms. Severity of symptoms: At their worst the symptoms were mild in the emergency department the symptoms are unchanged. The patient has experienced similar episodes in the past, multiple times. Historical: - Allergies: 13:17 No Known Allergies; bp - Home Meds: 13:17 Haldol Oral [Active]; [place]-3 oral [Active]; Metformin Oral [Active]; lisinopril Oral bp [Active]; - PMHx: 13:17 diabetes mellitus; Hypertensive disorder; Schizophrenia; bp - Immunization history:: Adult Immunizations up to date. - Social history:: Smoking status: Patient denies any tobacco usage or history of. - Family history:: not pertinent. ROS: 14:14 Constitutional: Negative for fever, chills, and weight loss, Eyes: Negative for injury, alma pain, redness, and discharge, ENT: Negative for injury, pain, and discharge, Neck: Negative for injury, pain, and swelling, Cardiovascular: Negative for chest pain, palpitations, and edema, Respiratory: Negative for shortness of breath, cough, wheezing, and pleuritic chest pain, Abdomen/GI: Negative for abdominal pain, nausea, vomiting, diarrhea, and constipation, Back: Negative for injury and pain, : Negative for injury, bleeding, discharge, and swelling, MS/Extremity: Negative for injury and deformity, Skin: Negative for injury, rash, and discoloration, Neuro: Negative for headache, weakness, numbness, tingling, and seizure, Psych: Negative for depression, anxiety, suicide ideation, homicidal ideation, and hallucinations, Allergy/Immunology: Negative for hives, rash, and allergies, Endocrine: Negative for neck swelling, polydipsia, polyuria, polyphagia, and marked weight changes, Hematologic/Lymphatic: Negative for swollen nodes, abnormal bleeding, and unusual bruising, Exam: 14:15 Constitutional: This is a well developed, well nourished patient who is awake, alert, alma and in no acute distress. Head/Face: Normocephalic, atraumatic. Eyes: Pupils equal round and reactive to light, extra-ocular motions intact. Lids and lashes normal. Conjunctiva and sclera are non-icteric and not injected. Cornea within normal limits. Periorbital areas with no swelling, redness, or edema. ENT: Nares patent. No nasal discharge, no septal abnormalities noted. Tympanic membranes are normal and external auditory canals are clear. Oropharynx with no redness, swelling, or masses, exudates, or evidence of obstruction, uvula midline. Mucous membranes moist. Neck: Trachea midline, no thyromegaly or masses palpated, and no cervical lymphadenopathy. Supple, full range of motion without nuchal rigidity, or vertebral point tenderness. No Meningismus. Chest/axilla: Normal chest wall appearance and motion. Nontender with no deformity. No lesions are appreciated. Cardiovascular: Regular rate and rhythm with a normal S1 and S2. No gallops, murmurs, or rubs. Normal PMI, no JVD. No pulse deficits. Respiratory: Lungs have equal breath sounds bilaterally, clear to auscultation and percussion. No rales, rhonchi or wheezes noted. No increased work of breathing, no retractions or nasal flaring. Abdomen/GI: Soft, non-tender, with normal bowel sounds. No distension or tympany. No guarding or rebound. No evidence of tenderness throughout. Back: No spinal tenderness. No costovertebral tenderness. Full range of motion. Male : Normal genitalia with no discharge or lesions. Skin: Warm, dry with normal turgor. Normal color with no rashes, no lesions, and no evidence of cellulitis. MS/ Extremity: Pulses equal, no cyanosis. Neurovascular intact. Full, normal range of motion. Neuro: Awake and alert, GCS 15, oriented to person, place, time, and situation. Cranial nerves II-XII grossly intact. Motor strength 5/5 in all extremities. Sensory grossly intact. Cerebellar exam normal. Normal gait. Psych: Awake, alert, with orientation to person, place and time. Behavior, mood, and affect are within normal limits. 14:15 Psych: Behavior/mood is pleasant, cooperative, Affect is calm, Oriented to person, place, time, Patient has no thoughts/intents to harm self or others. Judgement / Insight is normal. 14:50 ECG was reviewed by the Attending Physician. [facility] Vital Signs: 13:15 BP 126 / 83; Pulse 85; Resp 16; Temp 98; Pulse Ox 99% ; bp 16:01 BP 121 / 79; Pulse 75; Resp 16; Pulse Ox 98% ; bp MDM: 13:14 Patient medically screened. [facility] 14:15 Differential diagnosis: drug withdrawal. acute psychotic break, depression, psychosis alma secondary to non-compliance. Data reviewed: vital signs, nurses notes, lab test result(s), EKG. Consideration of Admission/Observation Escalation of care including admission/observation considered. I considered the following discharge prescriptions or medication management in the emergency department Medications were administered in the Emergency Department. See MAR. Independent interpretation of the following test(s) in the Emergency Department EKG: See my EKG interpretation above. Test considered but Not performed: CT: no ct head. Care significantly affected by the following chronic conditions: Diabetes, Hypertension, schizophrenia. 14:31 Historians other than the Patient: Family Member: mom and sister. 01/04 13:15 Order name: Acetaminophen; Complete Time: 15:35 01/04 13:15 Order name: Basic Metabolic Panel; Complete Time: 15:35 01/04 13:15 Order name: CBC with Diff; Complete Time: 15:35 01/04 13:15 Order name: ETOH Level; Complete Time: 15:35 01/04 13:15 Order name: Hepatic Function; Complete Time: 15:35 01/04 13:15 Order name: PT-INR; Complete Time: 15:35 01/04 13:15 Order name: Ptt, Activated; Complete Time: 15:35 01/04 13:15 Order name: Salicylate 01/04 13:15 Order name: Urinalysis w/ reflexes; Complete Time: 15:35 01/04 13:15 Order name: Urine Drug Screen 01/04 13:15 Order name: EKG; Complete Time: 13:16 01/04 13:15 Order name: EKG - Nurse/Tech; Complete Time: 14:48 alma 01/04 13:15 Order name: Labs collected and sent; Complete Time: 14:48 [facility] 01/04 13:15 Order name: Suicide Screening (Kiesha); Complete Time: 14:48 alma EC:50 Rate is 47 beats/min. Rhythm is regular. QRS [place] is Normal. [place] interval is normal. QRS [place] interval is normal. QT interval is normal. No Q waves. T waves are Normal. No ST changes noted. Clinical impression: Sinus bradycardia and No evidence of ischemia. Interpreted by me. Reviewed by me. Administered Medications: 15:54 Drug: Potassium PO Effervescent Tablet 25 mEq PO once; dissolve in 4 ounces of water or bp juice Route: PO; Disposition Summary: 01/04/24 15:36 Discharge Ordered Notes: Location: Home(01/04/24 15:36) alma Problem: new(01/04/24 15:36) alma Symptoms: have improved(01/04/24 15:36) alma Condition: Stable(01/04/24 15:36) alma Diagnosis - Schizophrenia, unspecified(01/04/24 15:36) alma - Hypokalemia alma Followup: alma - With: Private Physician - When: 2 - 3 days - Reason: Recheck today's complaints, Continuance of care, Re-evaluation by your physician Followup: alma - With: Yonathan Badillo MD - When: 2 - 3 days - Reason: Recheck today's complaints, Re-evaluation by your physician Discharge Instructions: - Discharge Summary Sheet alma - Potassium Content of Foods alma - Insomnia alma - Schizophrenia alma - Hypokalemia alma - Supporting Someone With Schizophrenia alma - Managing Schizophrenia alma Forms: - Medication Reconciliation Form alma - Thank You Letter alma - Antibiotic Education alma - Prescription Opioid Use alma - Patient Portal Instructions alma - Leadership Thank You Letter alma Signatures: Dispatcher [employer] Alvaro Prajapati MD MD cha Peltier, Brian RN RN bp Corrections: (The following items were deleted from the chart) 14:29 14:17 Home alma alma 14:29 14:17 new alma alma 14:29 14:17 have improved alma alma 14:29 14:17 Stable alma alma 14:29 14:17 Schizophrenia, unspecified alma alma
--- NOTE | 2024-01-04 14:17 | ER ---
Nurse's Notes [facility] Name: Brad Cisneros Age: 53 yrs Sex: Male : 1970 Arrival Date: 01/04/2024 Time: 12:59 Bed 18 Private MD: Diagnosis: Schizophrenia, unspecified;Hypokalemia Presentation: 01/04 13:11 Chief complaint: [facility] dropped patient off, sister contacted by ER registration, she ko1 stated the patient had "mental issue". Patient speaks only french. 13:15 Chief complaint: Patient states: PER PT, HE'S ONLY HERE BECAUSE HIS SISTER CALLED AFTER bp HE LEFT THE HOME. DENIES ACUTE MEDICAL OR PSYCH COMPLAINT. Coronavirus screen: At this time, the client does not indicate any symptoms associated with coronavirus-19. Ebola Screen: No symptoms or risks identified at this time. Initial Sepsis Screen: Does the patient meet any 2 criteria? No. Patient's initial sepsis screen is negative. Does the patient have a suspected source of infection? No. Patient's initial sepsis screen is negative. Risk Assessment: Do you want to hurt yourself or someone else? Patient reports no desire to harm self or others. Onset of symptoms is unknown. 13:15 Method Of Arrival: Law Enforcement: Gerald WRIGHT bp 13:15 Acuity: MAURICE 5 bp Triage Assessment: 13:17 General: Appears in no apparent distress. comfortable, Behavior is calm, cooperative. bp Pain: Denies pain. Historical: - Allergies: 13:17 No Known Allergies; bp - Home Meds: 13:17 Haldol Oral [Active]; [place]-3 oral [Active]; Metformin Oral [Active]; lisinopril Oral bp [Active]; - PMHx: 13:17 diabetes mellitus; Hypertensive disorder; Schizophrenia; bp - Immunization history:: Adult Immunizations up to date. - Social history:: Smoking status: Patient denies any tobacco usage or history of. - Family history:: not pertinent. Screenin:19 [facility] ED Fall Risk Assessment (Adult) History of falling in the last 3 months, bp including since admission No falls in past 3 months (0 pts). Abuse screen: Denies threats or abuse. Denies injuries from another. Nutritional screening: No deficits noted. Tuberculosis screening: No symptoms or risk factors identified. Assessment: 13:19 General: SEE TRIAGE NOTE. bp 13:26 Reassessment: PER INTERVIEW "MY SISTER WANTED ME TO TALK TO THE DOCTOR BECAUSE SHE SAYS bp I HAVE THE DEVIL IN ME." CONTINUES TO DENY SI/HI. 16:00 Reassessment: PT CLEARED FOR DISCHARGE. CONTINUES TO DENY SI/HI, AO4, AMBULATORY WITH bp STEADY GAIT. Vital Signs: 13:15 BP 126 / 83; Pulse 85; Resp 16; Temp 98; Pulse Ox 99% ; bp 16:01 BP 121 / 79; Pulse 75; Resp 16; Pulse Ox 98% ; bp ED Course: 13:04 Patient arrived in ED. mr 13:11 Rhett Ontiveros, RN is Primary Nurse. bp 13:14 Yovanny Michael DO is Attending Physician. ms3 13:14 Attending Physician role handed off by Yovanny Michael DO alma 13:14 Alvaro Stahl MD is Attending Physician. alma 13:17 Triage completed. bp 13:17 Arm band placed on. bp 13:19 Patient has correct armband on for positive identification. bp 14:16 Yonathan Badillo MD is Referral Physician. alma 15:36 Yonathan Badillo MD is Referral Physician. alma 16:00 No provider procedures requiring assistance completed. Patient did not have IV access bp during this emergency room visit. Administered Medications: 15:54 Drug: Potassium PO Effervescent Tablet 25 mEq PO once; dissolve in 4 ounces of water or bp juice Route: PO; Medication: 13:19 VIS not applicable for this client. bp Outcome: 14:17 Discharge ordered by . alma 15:36 Discharge ordered by . alma 16:01 Discharged to home ambulatory, bp 16:01 Condition: stable 16:01 Discharge instructions given to patient, Instructed on discharge instructions, follow up and referral plans. Demonstrated understanding of instructions, follow-up care, 16:01 Patient left the ED. bp Signatures: Alvaro Stahl MD MD cha Rivera, Mary, Reg Reg mr Rhett Ontiveros, RN RN bp Yovanny Michael DO DO ms3 Shawna Jalloh RN RN ko1
[2024-01-04 15:00] LABS: Specific Gravity 1.014 (1.005-1.030); Urine Bilirubin NEGATIVE (Negative); Urine Blood Negative (Negative); Urine Clarity Clear (Clear); Urine Color Light-Yellow (Yellow); Urine Glucose NEGATIVE (Negative); Urine Protein NEGATIVE (Negative); Urine Urobilinogen Normal (Normal); Urine pH 5.5 (5.0-7.0)
[2024-01-04 15:11] LABS: Protime INR 1.16
[2024-01-04 15:19] LABS: ALT/SGPT 29 U/L (16-61); AST/SGOT 20 U/L (15-37); Albumin 4.7 g/dL (3.4-5.0); Alkaline Phosphatase 102 U/L (45-117); BUN Blood Urea Nitrogen 10 mg/dL (7-18); Bicarbonate 30 mEq/L (21-32); Bilirubin Direct 0.3 mg/dL (0-0.2); Bilirubin Indirect, Calculated 0.6 mg/dL (0.2-0.8); Bilirubin Total 0.9 mg/dL (0.2-1.0); Glomerular Filtration Rate 93 ml/min (=/>90); Glucose Level 94 mg/dL (74-106); Potassium 3.4 mEq/L (3.5-5.1); Protein, Total 8.3 g/dL (6.4-8.2); Sodium Level 136 mEq/L (136-145)
[2024-01-04 15:26] LABS: Absolute Lymphocytes (CBC) 1.7 K/uL (0.7-4.9); Hematocrit 44.9 % (39.6-49.0); Lymphocytes % 25.9 % (15.3-44.8); MCV 90.9 fL (80-100); MPV 10.5 fL (7.6-11.3); Platelets 176 thou/uL (152-406); RBC Red Blood Cell Count 4.94 M/uL (4.33-5.43)
[2024-01-04 15:41] LABS: Barbiturates NEGATIVE (NEGATIVE); Benzodiazepines NEGATIVE (NEGATIVE); Cocaine NEGATIVE (NEGATIVE); METHAMPHETAM NEGATIVE (NEGATIVE); Methadone NEGATIVE (NEGATIVE); Opiates NEGATIVE (NEGATIVE); Phencyclidine NEGATIVE (NEGATIVE); THC Cannibis NEGATIVE (NEGATIVE)
[2024-01-05 01:07] VITALS: BP 121/79; TEMP 98; O2SAT 98
--- NOTE | 2024-01-05 12:57 | EKG ---
Test Date: 2024-01-04 Test Time: 14:47:34 Supervisor [employer]: JIMI MEASUREMENT RESULTS: Intervals: Rate: 47 [place]: 180 QRSD: 94 QT: 456 QTc: 403 [place]: P: 49 [place]: 180 QRS: 48 T: 65 INTERPRETIVE STATEMENTS: Sinus bradycardia Otherwise normal ECG No previous ECG available for comparison Electronically Signed On 01-05-24 12:52:57 GRINDER SET UP OPERATOR GEAR TOOL by Vance Hoyt
== END ==
LOC: ER 12:59
DX: F20.9 Schizophrenia, unspecified (principal); E87.6 Hypokalemia; E11.9 Type 2 diabetes mellitus without complications; I10 Essential (primary) hypertension
CPT/HCPCS: 36415; 80048; 80076; 80143; 80179; 80307; 81003; 82077; 85025; 85610; 85730; 93005

== ENCOUNTER 2024-03-11 17:16 | Emergency (ER) | payer OTHER ==
--- OUTSIDE RECORDS SUMMARY | 2024-03-11 17:18 | XMS REPORT | Continuity of Care Document ---
Author Name Unknown Address [address] [facility] [address] [place] [address] [facility] Address [address] [facility] [address] [place] [address] Care Team Providers Care Tobacco Stripper Hand Name Role Phone Unavailable Unavailable Unavailable Encounters Start Date/Time End Date/Time Encounter Type Admission Type Attending Clinicians Care Facility Care Department Encounter ID Source 2024-01-11 12:57:47 2024-01-11 12:57:47 Outpatient SFA SFA [id number] Eduardo Mitchell 2024-01-04 10:36:55 2024-01-04 10:36:55 Outpatient SFA SFA [id number] Eduardo Mitchell 2023-12-30 08:51:56 2023-12-30 08:51:56 Outpatient SFA SFA [id number] Eduardo Mitchell 2023-12-14 13:54:35 2023-12-14 13:54:35 Outpatient SFA SFA [id number] Eduardo Mitchell 2023-12-03 08:48:23 2023-12-03 08:48:23 Outpatient SFA SFA [id number] Eduardo Mitchell 2023-10-14 15:05:51 2023-10-14 15:05:51 Outpatient SFA SFA [id number] Eduardo Mitchell 2023-09-23 14:18:15 2023-09-23 14:18:15 Outpatient SFA SFA [id number] Eduardo Mitchell 2023-09-09 13:59:34 2023-09-09 13:59:34 Outpatient SFA SFA [id number] Eduardo Mitchell 2023-08-26 15:02:02 2023-08-26 15:02:02 Outpatient SFA SFA [id number] Eduardo Mitchell 2023-08-12 14:38:40 2023-08-12 14:38:40 Outpatient SFA SFA [id number] Eduardo Mitchell 2023-08-06 15:37:06 2023-08-06 15:37:06 Outpatient SFA SFA [id number] Eduardo Mitchell 2023-07-29 16:33:09 2023-07-29 16:33:09 Outpatient SFA SFA [id number] Eduardo Mitchell 2023-07-14 13:56:45 2023-07-14 13:56:45 Outpatient SFA SFA [id number] Eduardo Mitchell 2023-07-01 16:05:59 2023-07-01 16:05:59 Outpatient SFA SFA [id number] Eduardo Mitchell 2023-06-15 14:40:53 2023-06-15 14:40:53 Outpatient SFA SFA [id number] Eduardo Mitchell 2023-01-14 09:28:02 2023-01-14 09:28:02 Outpatient SFA SFA [id number] Eduardo Mitchell 2023-01-13 09:48:15 2023-01-13 09:48:15 Outpatient SFA SFA [id number] Eduardo Mitchell 2022-12-03 13:55:02 2022-12-03 13:55:02 Outpatient SFA SFA [id number] Eduardo Mitchell 2022-10-03 15:10:29 2022-10-03 15:10:29 Outpatient SFA SFA [id number] Eduardo Mitchell
[2024-03-11 18:26] LABS: Absolute Basophils 0.1 K/uL (0-0.5); Absolute Eosinophils 0.1 K/uL (0-0.5); Absolute Lymphocytes (CBC) 1.9 K/uL (0.7-4.9); Absolute Monocytes 0.6 K/uL (0.1-1.3); Absolute Neutrophil 5.2 K/uL (1.8-8.0); Basophils % 0.7 % (0-1.3); Eosinophils % 0.9 % (0-4.4); Hematocrit 41.5 % (39.6-49.0); Hemoglobin 14.2 g/dL (13.6-17.9); Lymphocytes % 23.8 % (15.3-44.8); MCHC 34.1 g/dL (32.0-36.0); MCV 93.9 fL (80-100); Monocytes % 7.6 % (3.3-12.3); Nucleated Red Blood Cells % 0.1 % (0-0); Platelets 193 thou/uL (152-406); RBC Red Blood Cell Count 4.42 M/uL (4.33-5.43); Red Cell Distribution Width 14.3 % (12.1-15.2)
[2024-03-11] MEDS ORDERED: NA CHLORIDE 0.9% 1,000 ML ONE (18:41)
[2024-03-11] MEDS ORDERED: MORPHINE 4 MG/ML SYR ONE (18:41)
[2024-03-11] MEDS ORDERED: FAMOTIDINE 20 MG/2 ML VIAL IV ONE (18:41)
[2024-03-11] MEDS ORDERED: ONDANSETRON 4 MG/2 ML VIAL ONE (18:41)
[2024-03-11 19:22] LABS: Specific Gravity > 1.030 (1.005-1.030); Sqamous Epithelial <5 /HPF (None Seen); Urine Bacteria None Seen /HPF (<20); Urine Bilirubin NEGATIVE (Negative); Urine Blood Negative (Negative); Urine Clarity Clear (Clear); Urine Color Yellow (Yellow); Urine Culture Reflex Order NOT NEEDED; Urine Glucose NEGATIVE (Negative); Urine Ketones NEGATIVE (Negative); Urine Microscopic Reflex YN ORDER UMIC; Urine Mucus 2+ /HPF (None Seen); Urine Nitrite NEGATIVE (Negative); Urine Protein TRACE (Negative); Urine RBC <5 /HPF (None Seen); Urine Urobilinogen Normal (Normal); Urine WBC <5 /HPF (<5)
[2024-03-11 19:22] LABS: ALT/SGPT 34 U/L (16-61); Albumin 2.8 g/dL (3.4-5.0); Albumin/Globulin Ratio 1.1 (1.1-1.8); Alkaline Phosphatase 85 U/L (45-117); Anion Gap 9.2 mEq/L (5.0-15.0); BUN Blood Urea Nitrogen 25 mg/dL (7-18); Bicarbonate 27 mEq/L (21-32); Bilirubin Total 0.2 mg/dL (0.2-1.0); Globulin 2.6 g/dL (2.3-3.5); Glomerular Filtration Rate 111 ml/min (=/>90); Glucose Level 79 mg/dL (74-106); Lipase 188 U/L (13-75); Protein, Total 5.4 g/dL (6.4-8.2); Sodium Level 148 mEq/L (136-145)
[2024-03-11 19:23] LABS: AST/SGOT 29 U/L (15-37); Potassium 3.2 mEq/L (3.5-5.1); Troponin High Sensitivity < 3.0 pg/mL (<58.9)
--- NOTE | 2024-03-11 20:37 | RAD REPORT ---
EXAM DESCRIPTION: CT - Abdomen Pelvis W Contrast - 03/11/2024 7:55 pm CLINICAL HISTORY: ABD PAIN COMPARISON: No comparisons TECHNIQUE: Thin cut axial CT imaging of the abdomen and pelvis was performed following intravenous a dministration of 100 mL Isovue 300. Multiplanar reformats were generated and reviewed. All CT scans are performed using dose optimization technique as appropriate and may include automated exposure control or mA/KV adjustment according to patient size. FINDINGS: No suspicious findings in the lung bases. The liver, spleen, adrenal glands, and pancreas show no suspicious findings. Gallbladder was surgical ly removed. Prominence of the central intrahepatic biliary radicles and common bile duct, nonspecific , but favored to relate to postcholecystectomy status. Symmetric renal function is seen with no hydronephrosis or suspicious renal mass. Right interpolar 4 mm nonobstructing calculus. Few scattered renal cortical fluid density cysts, not well characterized. No dilated bowel loops or bowel wall thickening. Nonspecific fluid opacification within short segment s of proximal to mid small bowel. Moderate to large stool burden throughout the colon. No free air, f ree fluid or inflammatory stranding. No hernia, mass or bulky lymphadenopathy. The urinary bladder is without significant finding. No suspicious bony findings. IMPRESSION: Nonspecific fluid opacification of short segments of proximal to mid small bowel, may re flect enteritis or diarrheal. Mild prominence of the central intrahepatic biliary radicles and the common bile duct, favored to rel ate to postcholecystectomy status.
--- NOTE | 2024-03-11 21:12 | ER ---
Nurse's Notes [facility] Name: Brad Cisneros Age: 53 yrs Sex: Male : 1970 Arrival Date: 03/11/2024 Time: 17:16 Bed 18 Private MD: Diagnosis: Abdominal tenderness Presentation: 03/11 17:48 Chief complaint: Patient states: ABD PAIN STARTED TODAY. Coronavirus screen: Client db denies travel out of the [place] in the last 14 days. At this time, the client does not indicate any symptoms associated with coronavirus-19. Ebola Screen: Patient negative for fever greater than or equal to 101.5 degrees Fahrenheit, and additional compatible Ebola Virus Disease symptoms Patient denies exposure to infectious person. Patient denies travel to an Ebola-affected area in the 21 days before illness onset. No symptoms or risks identified at this time. Initial Sepsis Screen: Does the patient meet any 2 criteria? No. Patient's initial sepsis screen is negative. Does the patient have a suspected source of infection? No. Patient's initial sepsis screen is negative. Risk Assessment: Do you want to hurt yourself or someone else? Patient reports no desire to harm self or others. Onset of symptoms was March 11, 2024. 17:48 Method Of Arrival: Ambulatory db 17:48 Acuity: MAURICE 3 db Triage Assessment: 17:51 General: Appears in no apparent distress. comfortable, Behavior is calm, cooperative. db Pain: Complains of pain in abdomen. GI: Abdomen is flat. Historical: - Allergies: 17:51 No Known Allergies; db - PMHx: 17:51 diabetes mellitus; Hypertensive disorder; Schizophrenia; db - Immunization history:: Adult Immunizations unknown. - Infectious Disease History:: Denies. - Family history:: not pertinent. - Social history:: Smoking status: Patient denies any tobacco usage or history of. Screenin:[address] [facility] ED Fall Risk Assessment (Adult) History of falling in the last 3 months, me1 including since admission No falls in past 3 months (0 pts) Confusion or Disorientation No (0 pts) Intoxicated or Sedated No (0 pts) Impaired Gait No (0 pts) Mobility Assist Device Used No (0 pt) Altered Elimination No (0 pt) Score/Fall Risk Level 0 - 2 = Low Risk Maintained a safe environment, Provided non-skid footwear, Hourly rounding (assess needs \T\ fall precautionary measures) done. Abuse screen: Denies threats or abuse. Nutritional screening: No deficits noted. Tuberculosis screening: No symptoms or risk factors identified. Assessment: 18:00 General: Appears uncomfortable, well groomed, well developed, well nourished, Behavior me1 is calm, cooperative, appropriate for age, Reports abdominal pain that started today. Pain: Complains of pain in abdomen and left lower quadrant and right lower quadrant and left upper quadrant and right upper quadrant Pain does not radiate. Pain currently is 6 out of 10 on a pain scale. Quality of pain is described as crampy, sharp, Pain began this morning Is continuous. Neuro: Level of Consciousness is awake, alert, obeys commands, Oriented to person, place, time, situation, Appropriate for age. Cardiovascular: Capillary refill < 3 seconds Patient's skin is warm and dry. Respiratory: Airway is patent Respiratory effort is even, unlabored, Respiratory pattern is regular, symmetrical. GI: Abdomen is flat, Bowel sounds present X 4 quads. Abd is soft X 4 quads Reports lower abdominal pain, upper abdominal pain. : No signs and/or symptoms were reported regarding the genitourinary system. EENT: No signs and/or symptoms were reported regarding the EENT system. Derm: Skin is intact, is healthy with good turgor, Skin is pink, warm \T\ dry. Musculoskeletal: No signs and/or symptoms reported regarding the musculoskeletal system. Vital Signs: 17:48 BP 123 / 76; Pulse 60; Resp 18; Temp 98.5; Pulse Ox 100% ; Height 5 ft. 5 in. ; db 18:00 BP 122 / 71; Pulse 65; Resp 16; Pulse Ox 100% on R/A; me1 19:00 BP 114 / 71; Pulse 53; Resp 16; Pulse Ox 99% on R/A; me1 20:00 BP 120 / 77; Pulse 66; Resp 19; Pulse Ox 98% ; me1 21:00 BP 111 / 77; Pulse 59; Resp 20; Pulse Ox 100% on R/A; me1 ED Course: 17:19 Patient arrived in ED. im 17:23 Alvaro Stahl MD is Attending Physician. alma 17:51 Triage completed. db 17:51 Arm band placed on Patient placed. db 18:00 Patient has correct armband on for positive identification. Bed in low position. Call me1 light in reach. Side rails up X2. Provided Education on: POC. Verbalized understanding . 18:00 No provider procedures requiring assistance completed. me1 18:04 Rebecca Hayes, CELIA is Primary Nurse. me1 18:20 Initial lab(s) drawn, by me, sent to lab. Inserted saline lock: 22 gauge in right me1 antecubital area, using aseptic technique. 18:38 Urine collected: clean catch specimen, clear. me1 19:21 EKG done, by solar thermal technician. reviewed by Alvaro Stahl MD. oe 19:57 CT Abd/Pelvis - IV Contrast Only In Process Unspecified. EDMS 20:00 Inserted saline lock: 22 gauge in left antecubital area, using aseptic technique. oe 21:11 Vince Beasley MD is Referral Physician. cp 21:24 IV discontinued, intact, bleeding controlled, No redness/swelling at site. Pressure me1 dressing applied. Administered Medications: 18:58 Drug: NS 0.9% IV 1000 ml IV at 1 bolus Per protocol; 1000 mL bolus Route: IV; Rate: 1 me1 bolus; Site: right antecubital; 21:26 Follow up: Response: No adverse reaction; IV Status: Completed infusion; IV Intake: me1 1000ml 18:58 Drug: Famotidine IVP 20 mg IVP once; dilute with 10 mL 0.9% NaCl; give over 2 minutes me1 Route: IVP; Site: right antecubital; 18:59 Follow up: Response: No adverse reaction me1 18:58 Drug: Ondansetron IVP 4 mg IVP once; over 2 minutes Route: IVP; Site: right antecubital;me1 18:59 Follow up: Response: No adverse reaction; Nausea is decreased me1 18:58 Drug: morphine IVP or IV 4 mg IVP once over 4 mins Route: IVP; Infused Over: 4 mins; me1 Site: right antecubital; 19:00 Follow up: Response: No adverse reaction; Pain is decreased me1 21:17 Drug: Potassium PO Effervescent Tablet 50 mEq PO once; dissolve in 4 ounces of water or me1 juice Route: PO; 21:24 Follow up: Response: No adverse reaction me1 21:17 Drug: Potassium PO Effervescent Tablet 25 mEq PO once; dissolve in 4 ounces of water or me1 juice Route: PO; 21:24 Follow up: Response: No adverse reaction me1 Medication: 18:00 VIS not applicable for this client. me1 Intake: 21:26 IV: 1000ml; Total: 1000ml. me1 Outcome: 21:11 Discharge ordered by . cp 21:24 Discharged to home ambulatory, with family, me1 21:24 Condition: stable 21:24 Discharge instructions given to patient, family, Instructed on discharge instructions, follow up and referral plans. medication usage, Demonstrated understanding of instructions, follow-up care, medications, Prescriptions given X 3, 21:27 Patient left the ED. me1 Signatures: Dispatcher [employer] EDAlvaro Desai MD MD cha Page, Corey, PA Leonel Shrestha cp, Danielle, RN RN Lila Hutchinson Michelle, RN RN me1
--- NOTE | 2024-03-11 21:12 | EDPHYS ---
Physician Documentation [facility] Name: Brad Cisneros Age: 53 yrs Sex: Male : 1970 Arrival Date: 03/11/2024 Time: 17:16 Bed 18 Private MD: ED Physician Alvaro Stahl HPI: 03/11 17:37 This 53 yrs old Male presents to ER via Unassigned with complaints of alma Abdominal Pain. 17:37 The patient presents with abdominal pain in the epigastric area, in the upper abdomen. alma Onset: The symptoms/episode began/occurred 3 day(s) ago. The symptoms do not radiate. Associated signs and symptoms: none. The symptoms are described as crampy. Modifying factors: The symptoms are alleviated by nothing, the symptoms are aggravated by nothing. Severity of pain: At its worst the pain was mild moderate in the emergency department the pain is unchanged. The patient has not experienced similar symptoms in the past. Historical: - Allergies: 17:51 No Known Allergies; db - PMHx: 17:51 diabetes mellitus; Hypertensive disorder; Schizophrenia; db - Immunization history:: Adult Immunizations unknown. - Infectious Disease History:: Denies. - Family history:: not pertinent. - Social history:: Smoking status: Patient denies any tobacco usage or history of. ROS: 17:37 Constitutional: Negative for fever, chills, and weight loss, Eyes: Negative for injury, alma pain, redness, and discharge, ENT: Negative for injury, pain, and discharge, Neck: Negative for injury, pain, and swelling, Cardiovascular: Negative for chest pain, palpitations, and edema, Respiratory: Negative for shortness of breath, cough, wheezing, and pleuritic chest pain, Back: Negative for injury and pain, : Negative for injury, bleeding, discharge, and swelling, MS/Extremity: Negative for injury and deformity, Skin: Negative for injury, rash, and discoloration, Neuro: Negative for headache, weakness, numbness, tingling, and seizure, Psych: Negative for depression, anxiety, suicide ideation, homicidal ideation, and hallucinations, Allergy/Immunology: Negative for hives, rash, and allergies, Endocrine: Negative for neck swelling, polydipsia, polyuria, polyphagia, and marked weight changes, Hematologic/Lymphatic: Negative for swollen nodes, abnormal bleeding, and unusual bruising, 17:37 Abdomen/GI: Positive for abdominal pain, of the right upper quadrant, left upper quadrant, right lower quadrant and left lower quadrant, Exam: 17:37 Constitutional: This is a well developed, well nourished patient who is awake, alert, alma and in no acute distress. Head/Face: Normocephalic, atraumatic. Eyes: Pupils equal round and reactive to light, extra-ocular motions intact. Lids and lashes normal. Conjunctiva and sclera are non-icteric and not injected. Cornea within normal limits. Periorbital areas with no swelling, redness, or edema. ENT: Nares patent. No nasal discharge, no septal abnormalities noted. Tympanic membranes are normal and external auditory canals are clear. Oropharynx with no redness, swelling, or masses, exudates, or evidence of obstruction, uvula midline. Mucous membranes moist. Neck: Trachea midline, no thyromegaly or masses palpated, and no cervical lymphadenopathy. Supple, full range of motion without nuchal rigidity, or vertebral point tenderness. No Meningismus. Chest/axilla: Normal chest wall appearance and motion. Nontender with no deformity. No lesions are appreciated. Cardiovascular: Regular rate and rhythm with a normal S1 and S2. No gallops, murmurs, or rubs. Normal PMI, no JVD. No pulse deficits. Respiratory: Lungs have equal breath sounds bilaterally, clear to auscultation and percussion. No rales, rhonchi or wheezes noted. No increased work of breathing, no retractions or nasal flaring. Abdomen/GI: Soft, non-tender, with normal bowel sounds. No distension or tympany. No guarding or rebound. No evidence of tenderness throughout. Back: No spinal tenderness. No costovertebral tenderness. Full range of motion. Male : Normal genitalia with no discharge or lesions. Skin: Warm, dry with normal turgor. Normal color with no rashes, no lesions, and no evidence of cellulitis. MS/ Extremity: Pulses equal, no cyanosis. Neurovascular intact. Full, normal range of motion. Neuro: Awake and alert, GCS 15, oriented to person, place, time, and situation. Cranial nerves II-XII grossly intact. Motor strength 5/5 in all extremities. Sensory grossly intact. Cerebellar exam normal. Normal gait. Psych: Awake, alert, with orientation to person, place and time. Behavior, mood, and affect are within normal limits. Vital Signs: 17:48 BP 123 / 76; Pulse 60; Resp 18; Temp 98.5; Pulse Ox 100% ; Height 5 ft. 5 in. ; db 18:00 BP 122 / 71; Pulse 65; Resp 16; Pulse Ox 100% on R/A; me1 19:00 BP 114 / 71; Pulse 53; Resp 16; Pulse Ox 99% on R/A; me1 20:00 BP 120 / 77; Pulse 66; Resp 19; Pulse Ox 98% ; me1 21:00 BP 111 / 77; Pulse 59; Resp 20; Pulse Ox 100% on R/A; me1 MDM: 17:23 Patient medically screened. alma 17:40 Differential diagnosis: diverticulitis, gastritis, gastroesophageal reflux disease, alma non-specific abd pain, pancreatitis, Peptic Ulcer Disease, Perf. Duodenal Ulcer, Prostatitis, Ureterolithiasis, urinary tract infection. Data reviewed: vital signs, nurses notes, lab test result(s), EKG, radiologic studies, CT scan. Consideration of Admission/Observation Escalation of care including admission/observation considered. I considered the following discharge prescriptions or medication management in the emergency department Medications were administered in the Emergency Department. See MAR. Independent interpretation of the following test(s) in the Emergency Department CT Scan: My interpretation is ct abd/pel negative. Care significantly affected by the following chronic conditions: none per family , recent lap robert. 03/11 17:25 Order name: CBC with Diff; Complete Time: 18:39 [facility] 03/11 17:25 Order name: CMP; Complete Time: 20:35 [facility] 03/11 20:35 Interpretation: Normal except: NA 148; K 3.2; CL 115; BUN 25; CRE 0.69; CA 7.1; TP 5.4; cp ALB 2.8. 03/11 17:25 Order name: Lipase; Complete Time: 20:35 [facility] 03/11 20:36 Interpretation: Abnormal: LIP 188. cp 03/11 17:25 Order name: Urinalysis w/ reflexes; Complete Time: 20:35 [facility] 03/11 20:36 Interpretation: Normal except: Urine SG > 1.030; UPROT TRACE. cp 03/11 17:25 Order name: Troponin HS; Complete Time: 20:35 [facility] 03/11 17:25 Order name: CT Abd/Pelvis - IV Contrast Only; Complete Time: 21:10 [facility] 03/11 17:25 Order name: IV Saline Lock; Complete Time: 19:00 [facility] 03/11 17:25 Order name: Labs collected and sent; Complete Time: 19:00 [facility] 03/11 17:25 Order name: EKG - Nurse/Tech; Complete Time: 20:46 [facility] 03/11 18:31 Order name: Labs - recollect needed: recollect chemistries / hemolyzed per nancy reid Complete Time: 18:58 Administered Medications: 18:58 Drug: NS 0.9% IV 1000 ml IV at 1 bolus Per protocol; 1000 mL bolus Route: IV; Rate: 1 me1 bolus; Site: right antecubital; 21:26 Follow up: Response: No adverse reaction; IV Status: Completed infusion; IV Intake: me1 1000ml 18:58 Drug: Famotidine IVP 20 mg IVP once; dilute with 10 mL 0.9% NaCl; give over 2 minutes me1 Route: IVP; Site: right antecubital; 18:59 Follow up: Response: No adverse reaction me1 18:58 Drug: Ondansetron IVP 4 mg IVP once; over 2 minutes Route: IVP; Site: right antecubital;me1 18:59 Follow up: Response: No adverse reaction; Nausea is decreased me1 18:58 Drug: morphine IVP or IV 4 mg IVP once over 4 mins Route: IVP; Infused Over: 4 mins; me1 Site: right antecubital; 19:00 Follow up: Response: No adverse reaction; Pain is decreased me1 21:17 Drug: Potassium PO Effervescent Tablet 50 mEq PO once; dissolve in 4 ounces of water or me1 juice Route: PO; 21:24 Follow up: Response: No adverse reaction me1 21:17 Drug: Potassium PO Effervescent Tablet 25 mEq PO once; dissolve in 4 ounces of water or me1 juice Route: PO; 21:24 Follow up: Response: No adverse reaction me1 Disposition Summary: 03/11/24 21:11 Discharge Ordered Notes: Location: Home cp Problem: new cp Symptoms: have improved cp Condition: Stable cp Diagnosis - Abdominal tenderness cp Followup: alma - With: Private Physician - When: 2 - 3 days - Reason: Recheck today's complaints, Continuance of care, Re-evaluation by your physician Followup: alma - With: Vince Beasley MD - When: 2 - 3 days - Reason: Recheck today's complaints, Continuance of care, Re-evaluation by your physician Discharge Instructions: - Discharge Summary Sheet alma - Abdominal Pain, Adult alma - Abdominal Pain, Adult, Abfw-of-Xuiy alma Forms: - Medication Reconciliation Form cp - Thank You Letter cp - Antibiotic Education cp - Prescription Opioid Use cp - Patient Portal Instructions cp - Leadership Thank You Letter cp Prescriptions: - ondansetron 4 mg Oral Tablet,disintegrating - take 1 tablet ORAL route every 6 to 8 hours for 5 days; 20 tablet; Refills: 0, [facility] Product Selection Permitted - Pepcid 20 mg Oral tablet - take 1 tablet ORAL route every 12 hours for 21 days; 42 tablet; Refills: 0, [facility] Product Selection Permitted - dicyclomine 20 mg Oral tablet - take 1 tablet ORAL route 4 times per day; 28 tablet; Refills: 0, Product alma Selection Permitted Signatures: Dispatcher [employer] EDAlvaro Desai MD MD cha Page, Corey, PA PA cp Juli Barrett Danielle, RN RN db Rebecca Hayes, CELIA RN me1 Corrections: (The following items were deleted from the chart) 17:25 17:25 CBC+H.LAB.BRZ ordered. EDMS EDMS 17:25 17:25 COMPREHENSIVE METABOLIC PANEL+C.LAB.BRZ ordered. EDMS EDMS 17:25 17:25 LIPASE+C.LAB.BRZ ordered. EDMS EDMS 17:25 17:25 Urinalysis+U.LAB.BRZ ordered. EDMS EDMS 17:25 17:25 Troponin High Sensitivity+C.LAB.BRZ ordered. EDMS EDMS 17:25 17:25 Abdomen Pelvis W Con+CT.RAD.BRZ ordered. EDMS EDMS
[2024-03-11] MEDS ORDERED: POTASSIUM 25 MEQ EFFERV TAB ONE (21:13)
[2024-03-12 03:32] VITALS: BP 111/77; TEMP 98.5; O2SAT 100
== END 2024-03-11 21:27 | disposition home or self-care (01) ==
LOC: ER 17:16
DX: R10.816 Epigastric abdominal tenderness (principal)
CPT/HCPCS: 96361; 85025; 81001; 36415; 84484; 83690; 80053; 74177; 96375; 96374; 99284; Q9967; J2405; J7030; 93005

== ENCOUNTER 2024-07-05 14:33 | Emergency (ER) | payer OTHER ==
--- OUTSIDE RECORDS SUMMARY | 2024-07-05 14:36 | XMS REPORT | Continuity of Care Document ---
Author Name Unknown Address [address] [facility] [address] [place] [address] [facility] [address] [facility] [address] [place] [address] Care Team Providers Care [employer] Name Role Phone Marley Dolan Primary Care Physician [phone] Allergies, Adverse Reactions, Alerts Allergy Name Allergy Type Status Severity Reaction(s) Onset Date Inactive Date Treating Clinician Comments Source [place] - Intraven ous Propensi ty to adverse reaction to drug Active 5-19 00:00: 00 Eduardo Mitchell n Propensi ty to adverse reaction to drug Active -18 00:00: 00 Eduardo Mitchell Aspirin - Oral Propensi ty to adverse reaction to drug Active 5-03 00:00: 00 Eduardo Mitchell Medications Ordered Medication Name Filled Medication Name Start Date Stop Date Current Medication? Ordering Clinician Indication Dosage Frequency Signature (SIG) Comments Components Source ONDANSETRON ODT 4 MG TBDP 4-13 00:00: 00 Yes Eduardo Mitchell DICYCLOMINE HYDROCHLORI DE 20 MG TABS 4-13 00:00: 00 Yes Eduardo Mitchell FAMOTIDINE 20 MG TABS 4-12 00:00: 00 Yes Eduardo Mitchell atorvastati n 10 mg tablet - 00:00: 00 Yes Eduardo Mitchell TAKE 1 TABLET BY MOUTH ONCE DAILY 2- 00:00: 00 03-25 00:00 :00 No 10 Eduardo Mitchell ESCITALOPRA M OXALATE 5 MG TABS 1- 00:00: 00 Yes Eduardo Mitchell TAKE 1 TABLET AT BEDTIME. 12-30 00:00: 00 03-25 00:00 :00 No 10 Eduardo F Stephen TAKE 1 TABLET AT BEDTIME NEEDED. 12-30 00:00: 00 03-25 00:00 :00 No 50 Eduardo F Stephen TAKE 3 TABLETS IN THE MORNING DAILY 12-30 00:00: 00 03-25 00:00 :00 No 5 Eduardo F Stephen TAKE 2 TABLETS DAILY. 12-30 00:00: 00 03-25 00:00 :00 No 3 Eduardo F Stephen TAKE 1 TABLET BY MOUTH DAILY 12-14 00:00: 00 Yes 10 Eduardo F Stephen RISPERIDONE 3 MG TABS 12-03 00:00: 00 Yes Eduardo F Stephen TAKE 2 TABLETS DAILY. 12-03 00:00: 00 03-25 00:00 :00 No 3 Eduardo F Stephen TAKE 1 TABLET AT BEDTIME NEEDED. 12-03 00:00: 00 03-25 00:00 :00 No 50 Eduardo F Stephen TAKE 3 TABLETS IN THE MORNING DAILY 12-03 00:00: 00 03-25 00:00 :00 No 5 Eduardo F Stephen TAKE 1 TABLET AT BEDTIME. 12-03 00:00: 00 03-25 00:00 :00 No 10 Eduardo F Stephen TAKE 1 TABLET BY MOUTH AT BEDTIME 2022-11 00:00: 00 Yes Eduardo F Stephen TAKE 3 TABLETS IN THE MORNING DAILY 2022-11 00:00: 00 03-25 00:00 :00 No 5 Eduardo F Stephen TAKE 2 TABLETS DAILY. 2022-11 00:00: 00 03-25 00:00 :00 No 3 Eduardo F Stephen TAKE 1 TABLET AT BEDTIME NEEDED. 2022-11 00:00: 00 03-25 00:00 :00 No 50 Eduardo F Stephen TAKE 1 TABLET AT BEDTIME. 2022-11 00:00: 00 03-25 00:00 :00 No 10 Eduardo F Stephen TAKE 3 TABLETS BY MOUTH ONCE DAILY IN THE MORNING 2022-11 00:00: 00 Yes Eduardo Mitchell TAKE 2 TABLETS BY MOUTH ONCE DAILY 2022-11 00:00: 00 Yes Eduardo Mitchell TAKE 2 TABLETS DAILY. 2022-11 00:00: 00 03-25 00:00 :00 No 3 Eduardo Mitchell TAKE 1 TABLET AT BEDTIME. 2022-11 00:00: 00 03-25 00:00 :00 No 10 Eduardoanthony Mitchell TAKE 1 TABLET AT BEDTIME NEEDED. 2022-11 00:00: 00 03-25 00:00 :00 No 50 Eduardo Darren Mitchell TAKE 3 TABLETS IN THE MORNING DAILY 2022-11 00:00: 00 03-25 00:00 :00 No 5 Eduardo Darren Mitchell LISINOPRIL 10 MG TABS 2022-11 00:00: 00 03-25 00:00 :00 No Eduardoanthony Mitchell TAKE 1 TABLET DAILY. 2022-11 00:00: 00 03-25 00:00 :00 No 10 Eduardo Darren Mitchell ESCITALOPRA M OXALATE 5 MG TABS 2022-11 0 00:00: 00 Yes Eduardo Mitchell TAKE 1 TABLET AT BEDTIME NEEDED. 2022-11 00:00: 00 03-25 00:00 :00 No 50 Eduardo Mitchell TAKE 1 TABLET AT BEDTIME. 2022-11 0 00:00: 00 03-25 00:00 :00 No 10 Eduardoanthony Mitchell TAKE 3 TABLETS IN THE MORNING DAILY 2022-11 0 00:00: 00 03-25 00:00 :00 No 5 Eduardo Darren Mitchell TAKE 2 TABLETS DAILY. 2022-11 0 00:00: 00 03-25 00:00 :00 No 3 Eduardoanthony Mitchell TAKE 1 TABLET BY MOUTH DAILY 08-26 00:00: 00 03-25 00:00 :00 No 20 Eduardo Darren Mitchell ESCITALOPRA M OXALATE 5 MG TABS 08-12 00:00: 00 Yes Eduardo Mitchell ARIPIPRAZOL E 10 MG TABS 08-12 00:00: 00 Yes Eduardo Mitchell TAKE 2 TABLETS DAILY. 08-12 00:00: 00 03-25 00:00 :00 No 3 Eduardo Mitchell TAKE 1 TABLET AT BEDTIME. 08-12 00:00: 00 03-25 00:00 :00 No 10 Eduardo Mitchell TAKE 3 TABLETS IN THE MORNING DAILY 08-12 00:00: 00 03-25 00:00 :00 No 5 Eduardoanthony Mitchell TAKE 1 TABLET AT BEDTIME NEEDED. 08-12 00:00: 00 03-25 00:00 :00 No 50 Eduardoanthony Mitchell TAKE 1 TABLET AT BEDTIME. 08-07 00:00: 00 Yes 10 Eduardo Mitchell TAKE 1 TABLET AT BEDTIME NEEDED. 08-07 00:00: 00 03-25 00:00 :00 No 50 Eduardo Mitchell TAKE 2 TABLETS DAILY. 08-07 00:00: 00 03-25 00:00 :00 No 3 Eduardo Mitchell APPLY 1/2" RIBBON TO LEFT EYE TWICE DAILY . 07-23 00:00: 00 Yes Eduardo Mitchell APPLY 1/2 " RIBBON TO THE LEFT EYE TWICE DAILY. 07-23 00:00: 00 03-25 00:00 :00 No [id number] Eduardo Mitchell TAKE 2 TABLETS BY MOUTH ONCE DAILY 07-15 00:00: 00 Yes Eduardo Mitchell TAKE 3 TABLETS BY MOUTH ONCE DAILY IN THE MORNING 07-14 00:00: 00 Yes Eduardo Mitchell TAKE 3 TABLETS IN THE MORNING DAILY 07-14 00:00: 00 03-25 00:00 :00 No 5 Eduardo Mitchell TAKE 2 TABLETS DAILY. 07-14 00:00: 00 03-25 00:00 :00 No 3 Eduardo Mitchell TAKE 1 TABLET AT BEDTIME NEEDED. 07-14 00:00: 00 03-25 00:00 :00 No 50 Eduardo Mitchell LISINOPRIL 10 MG TABS 2023-0 8-11 00:00: 00 03-25 00:00 :00 No Eduardo Mitchell TAKE 1 TABLET BY MOUTH TWICE DAILY 0 7-15 00:00: 00 Yes Eduardo Mitchell TAKE 1 TABLET BY MOUTH TWICE DAILY 0 7-15 00:00: 00 Yes Eduardo Mitchell RISPERIDONE 3 MG TABS 0 7-15 00:00: 00 Yes Eduardo Mitchell TAKE 1 TABLET BY MOUTH ONCE DAILY AT BEDTIME 0 7-15 00:00: 00 03-25 00:00 :00 No Eduardo Mitchell TAKE 1 TABLET BY MOUTH ONCE DAILY 0 7-12 00:00: 00 03-25 00:00 :00 No Eduardo Mitchell TAKE 1 TABLET BY MOUTH TWICE DAILY. 0 6-15 00:00: 00 03-25 00:00 :00 No 1000 Eduardo Mitchell TAKE 1 TABLET BY MOUTH DAILY 0 6-15 00:00: 00 03-25 00:00 :00 No 20 Eduardo Mitchell TAKE 1 TABLET TWICE DAILY. 0 6-15 00:00: 00 03-25 00:00 :00 No 1 Eduardo Mitchell TAKE 1 TABLET TWICE DAILY AFTER MEALS. 0 6-15 00:00: 00 03-25 00:00 :00 No 2 Eduardo Mitchell TAKE 1 TABLET BY MOUTH DAILY 0 5-17 00:00: 00 03-25 00:00 :00 No 10 Eduardo Mitchell TAKE 1 TABLET DAILY. 0 5-04 00:00: 00 03-25 00:00 :00 No 10 Eduardo Mitchell TAKE 1 TABLET TWICE DAILY. 0 4-25 00:00: 00 03-25 00:00 :00 No 1 Eduardo Mitchell TAKE 1 TABLET BY MOUTH DAILY 0 4-14 00:00: 00 03-25 00:00 :00 No 10 Eduardo Mitchell METFORMIN HYDROCHLORI DE 1000 MG TABS 0 4-12 00:00: 00 Yes Eduardo Mitchell TAKE 1 TABLET TWICE DAILY. 0 3-29 00:00: 00 03-25 00:00 :00 No 1 Eduardoanthony Mitchell TAKE 1 TABLET BY MOUTH DAILY 3-07 00:00: 00 03-25 00:00 :00 No 10 Eduardo F Stephen TAKE 1 TABLET TWICE DAILY. 3-07 00:00: 00 03-25 00:00 :00 No 1000 Eduardoanthony Micthell TAKE 1 TABLET BY MOUTH DAILY 3- 00:00: 00 03-25 00:00 :00 No 20 Eduardoanthony Mitchell TAKE 1 TABLET TWICE DAILY AFTER MEALS. 3-07 00:00: 00 03-25 00:00 :00 No 2 Eduardo F Stephen TAKE 1 TABLET TWICE DAILY. 2-14 00:00: 00 03-25 00:00 :00 No 1000 Eduardo Mitchell TAKE 1 TABLET BY MOUTH DAILY 2- 00:00: 00 03-25 00:00 :00 No 20 Eduardoanthony Mitchell TAKE 1 TABLET BY MOUTH DAILY 2- 00:00: 00 03-25 00:00 :00 No 10 Eduardo Darren Mitchell TAKE 1 TABLET TWICE DAILY AFTER MEALS. 2-14 00:00: 00 03-25 00:00 :00 No 2 Eduardoanthony Mitchell DICLOFENAC SODIUM DR 75 MG [facility] 1- 00:00: 00 Yes Eduardo Darren Mitchell TOME ARMIN TABLETA DOS VECES AL BOB 2021-11 2-15 00:00: 00 Yes Eduardo Darren Mitchell TAKE 1 TABLET DAILY. 2021-11 2-15 00:00: 00 03-25 00:00 :00 No Eduardo Darren Mitchell Dose Unknown 2021-11 2-15 00:00: 00 03-25 00:00 :00 No Eduardo Darren Stephen TAKE 1 TABLET BY MOUTH TWICE DAILY 2021-11 2-15 00:00: 00 03-25 00:00 :00 No Eduardo F Stephen Dose Unknown 2021-11 2-15 00:00: 00 03-25 00:00 :00 No Eduardo F Stephen HALOPERIDOL 2 MG TABS 2021-11 2- 00:00: 00 03-25 00:00 :00 No Eduardo Banks Stephen FUROSEMIDE 20 MG TABS 2021-11 00:00: 00 03-25 00:00 :00 No Eduardo F Stephen Dose Unknown 2021-11 00:00: 00 03-25 00:00 :00 No Eduardo Mitchell TRAZODONE HYDROCHLORI DE 50 MG TABS 2021-11 00:00: 00 03-25 00:00 :00 No Eduardo Mitchell TAKE 1 TABLET BY MOUTH DAILY 2021-11 00:00: 00 03-25 00:00 :00 No 10 Eduardo F Stephen Dose Unknown 0 8-10 00:00: 00 Yes Eduardo F Stephen Dose Unknown 0 8-10 00:00: 00 Yes Eduardo F Stephen Dose Unknown 0 8-10 00:00: 00 Yes Eduardo F Stephen Dose Unknown 0 8-10 00:00: 00 Yes Eduardo Mitchell furosemide 20 mg tablet 2021-0 7-15 00:00: 00 Yes 1mg Eduardo Mitchell lisinopril 10 mg tablet 2021-0 7-15 00:00: 00 Yes 1mg Eduardo Mitchell haloperidol 2 mg tablet 2021-0 7-15 00:00: 00 Yes 1mg Eduardo Mitchell metformin 1,000 mg tablet 2021-0 7-15 00:00: 00 Yes 1mg Eduardo Mitchell haloperidol 2 mg tablet 2021-0 5-21 00:00: 00 Yes 1mg Eduardo Mitchell metformin 1,000 mg tablet 2021-0 4-22 00:00: 00 Yes 1mg Eduardo F Stephen Dose Unknown 2021-0 4-21 00:00: 00 Yes Eduardo F Stephen Dose Unknown 2021-0 4-21 00:00: 00 Yes Eduardo F Stephen Dose Unknown 2021-0 4-21 00:00: 00 Yes Eduardo F Stephen haloperidol 2 mg tablet 2021-0 4-21 00:00: 00 Yes 1mg Eduardo F Stephen Dose Unknown 2021-0 4-21 00:00: 00 Yes Eduardo F Stephen Dose Unknown 2021-0 4-21 00:00: 00 Yes Eduardo F Stephen Dose Unknown 2021-0 4-21 00:00: 00 Yes Eduardo F Stephen Immunizations Ordered Immunization Name Filled Immunization Name Date Status Comments Source Influenza, seasonal, inj Influenza, seasonal, inj 2023-12-14 00:00:00 Completed Eduardo Mitchell Vital Signs Vital Name Observation Time Observation Value Comments S alondra BP Systolic 2024-03-24 10:19:00 Step hen F Stephen BP Diastolic 2024-03-24 10:19:00 Adalberto phen F Stephen Weight Measured 2024-03-24 10:19:00 Eduardo F Stephen Height Measured 2024-03-24 10:19:00 65.00 inches Eduardo Bansk Stephen Body Temperature 2024-03-24 10:19:00 Eduardo F Stephen Heart Rate 2024-03-24 10:19:00 Gladys en F Stephen Respiratory Rate 2024-03-24 10:19:00 Eduardo F Stephen BP Systolic 2024-03-24 10:15:00 105 mm[Hg] Step hen F Stephen BP Diastolic 2024-03-24 10:15:00 61 mm[Hg] Adalberto phen F Stephen Weight Measured 2024-03-24 10:15:00 120.70 pounds Eduardo Mitchell Height Measured 2024-03-24 10:15:00 65.00 inches Eduardo F Stephen Body Temperature 2024-03-24 10:15:00 97.60 degrees Eduardo F Stephen Heart Rate 2024-03-24 10:15:00 90.00 /min Gladys en F Stephen Respiratory Rate 2024-03-24 10:15:00 Eduardo F Stephen BP Systolic 2023-12-14 13:57:00 131 mm[Hg] Step hen F Stephen BP Diastolic 2023-12-14 13:57:00 92 mm[Hg] Adalberto phen F Stephen Weight Measured 2023-12-14 13:57:00 128.80 pounds Eduardo F Stephen Height Measured 2023-12-14 13:57:00 65.00 inches Eduardo F Stephen Body Temperature 2023-12-14 13:57:00 97.90 degrees Eduardo F Stephen Heart Rate 2023-12-14 13:57:00 61.00 /min Gladys en F Stephen Respiratory Rate 2023-12-14 13:57:00 Eduardo F Stephen BP Systolic 2023-12-03 09:28:00 115 mm[Hg] Step hen F Stephen BP Diastolic 2023-12-03 09:28:00 69 mm[Hg] Adalberto phen F Stephen Weight Measured 2023-12-03 09:28:00 136.00 pounds Eduardo F Stephen Height Measured 2023-12-03 09:28:00 65.00 inches Eduardo F Stephen Body Temperature 2023-12-03 09:28:00 97.70 degrees Eduardo F Stephen Heart Rate 2023-12-03 09:28:00 60.00 /min Gladys en F Stephen Respiratory Rate 2023-12-03 09:28:00 20.00 /min Eduardo F Stephen BP Systolic 2023-09-23 14:19:00 123 mm[Hg] Step hen F Stephen BP Diastolic 2023-09-23 14:19:00 72 mm[Hg] Adalberto phen F Stephen Weight Measured 2023-09-23 14:19:00 134.50 pounds Eduardo F Stephen Height Measured 2023-09-23 14:19:00 65.00 inches Eduardo F Stephen Body Temperature 2023-09-23 14:19:00 98.30 degrees Eduardo F Stephen Heart Rate 2023-09-23 14:19:00 67.00 /min Gladys en F Stephen Respiratory Rate 2023-09-23 14:19:00 Eduardo F Stephen BP Systolic 2023-08-26 15:02:00 96 mm[Hg] Step hen F Stephen BP Diastolic 2023-08-26 15:02:00 64 mm[Hg] Adalberto phen F Stephen Weight Measured 2023-08-26 15:02:00 144.00 pounds Eduardo F Stephen Height Measured 2023-08-26 15:02:00 65.00 inches Eduardo F Stephen Body Temperature 2023-08-26 15:02:00 97.70 degrees Eduardo F Stephen Heart Rate 2023-08-26 15:02:00 50.00 /min Gladys en F Stephen Respiratory Rate 2023-08-26 15:02:00 Eduardo F Stephen BP Systolic 2023-07-29 17:32:00 Step hen F Stephen BP Diastolic 2023-07-29 17:32:00 Adalberto phen F Stephen Weight Measured 2023-07-29 17:32:00 Eduardo F Stephen Height Measured 2023-07-29 17:32:00 Eduardo F Stephen Body Temperature 2023-07-29 17:32:00 Eduardo F Stephen Heart Rate 2023-07-29 17:32:00 Gladys en F Stephen Respiratory Rate 2023-07-29 17:32:00 Eduardo F Stephen BP Systolic 2023-04-21 09:28:00 Step hen F Stephen BP Diastolic 2023-04-21 09:28:00 Adalberto phen F Stephen Weight Measured 2023-04-21 09:28:00 161.00 pounds Eduardo F Stephen Height Measured 2023-04-21 09:28:00 65.00 inches Eduardo F Stephen Body Temperature 2023-04-21 09:28:00 Eduardo F Stephen Heart Rate 2023-04-21 09:28:00 Gladys en F Stephen Respiratory Rate 2023-04-21 09:28:00 Eduardo F Stephen BP Systolic 2023-04-02 09:33:00 109 mm[Hg] Step hen F Stephen BP Diastolic 2023-04-02 09:33:00 72 mm[Hg] Adalberto phen F Stephen Weight Measured 2023-04-02 09:33:00 161.60 pounds Eduardo F Stephen Height Measured 2023-04-02 09:33:00 65.00 inches Eduardo F Stephen Body Temperature 2023-04-02 09:33:00 97.20 degrees Eduardo F Stephen Heart Rate 2023-04-02 09:33:00 81.00 /min Gladys en F Stephen Respiratory Rate 2023-04-02 09:33:00 Eduardo F Stephen BP Systolic 2023-01-13 10:30:00 115 mm[Hg] Step hen F Stephen BP Diastolic 2023-01-13 10:30:00 65 mm[Hg] Adalberto phen F Stpehen Weight Measured 2023-01-13 10:30:00 177.00 pounds Eduardo F Tsephen Height Measured 2023-01-13 10:30:00 65.00 inches Eduarod F Stephen Body Temperature 2023-01-13 10:30:00 97.40 degrees Eduardo F Stephen Heart Rate 2023-01-13 10:30:00 95.00 /min Gladys en F Stephen Respiratory Rate 2023-01-13 10:30:00 25.00 /min Eduardo F Stephen Encounters Start Date/Time End Date/Time Encounter Type Admission Type Attending [facility] Care Department Encounter ID Source 2024-06-09 08:11:02 2024-06-09 08:11:02 Outpatient SFA SFA [id number] Eduardo Mitchell 2024-04-04 08:16:29 2024-04-04 08:16:29 Outpatient SFA SFA [id number] Eduardo Mitchell 2024-03-24 00:00:00 2024-03-24 00:00:00 Outpatient Visit SFA [id number] Eduardo Mitchell 2024-01-11 12:57:47 2024-01-11 12:57:47 Outpatient SFA SFA [id number] Eduardo Mitchell 2024-01-04 10:36:55 2024-01-04 10:36:55 Outpatient SFA SFA [id number] Eduardo Mitchell 2023-12-30 08:51:56 2023-12-30 08:51:56 Outpatient SFA SFA [id number] Eduardo Mitchell 2023-12-14 13:54:35 2023-12-14 13:54:35 Outpatient SFA SFA [id number] Eduardo Mitchell 2023-12-03 08:48:23 2023-12-03 08:48:23 Outpatient SFA SFA [id number] Eduardo Mitchell 2023-10-14 15:05:51 2023-10-14 15:05:51 Outpatient SFA SFA [id number] Eduardo Mitchell 2023-09-23 14:18:15 2023-09-23 14:18:15 Outpatient SFA SFA [id number] Eduardo Mitchell 2023-09-09 13:59:34 2023-09-09 13:59:34 Outpatient SFA SFA [id number] Eduardo Mitchell 2023-08-26 15:02:02 2023-08-26 15:02:02 Outpatient SFA SFA [id number] Eduardo Mitchell 2023-08-12 14:38:40 2023-08-12 14:38:40 Outpatient SFA SFA [id number] Eduardo Mitchell 2023-08-06 15:37:06 2023-08-06 15:37:06 Outpatient SFA SFA [id number] Eduardo Mitchell 2023-07-29 16:33:09 2023-07-29 16:33:09 Outpatient SFA SFA [id number] Eduardo Mitchell 2023-07-14 13:56:45 2023-07-14 13:56:45 Outpatient SFA SFA [id number] Eduardo Mitchell 2023-07-01 16:05:59 2023-07-01 16:05:59 Outpatient SFA SFA [id number] Eduardo Mitchell 2023-06-15 14:40:53 2023-06-15 14:40:53 Outpatient SFA SFA [id number] Eduardo Mitchell 2023-01-14 09:28:02 2023-01-14 09:28:02 Outpatient SFA SFA [id number] Eduardo Mitchell 2023-01-13 09:48:15 2023-01-13 09:48:15 Outpatient SFA SFA [id number] Eduardo Mitchell 2022-12-03 13:55:02 2022-12-03 13:55:02 Outpatient SFA SFA [id number] Eduardo Mitchell 2022-10-03 15:10:29 2022-10-03 15:10:29 Outpatient SFA SFA [id number] Eduardo Mitchell Results Test Description Test Time Test Comments Results Result Co mments Source Eduardo MitchellHEMOGLOBIN A1c [ADDED]2023-09-24 00:00:00* Test Item Value Reference Range Interpretation Comme nts HEMOGLOBIN A1c (test code = 99832) 5.2 % Eduardo MitchellLIPID PANEL [ADDED]2023-09-24 00:00:00* Test Item Value Reference Range Interpretation Comme nts CHOLESTEROL (test code = 2210) 124 MG/DL TRIGLYCERIDES (test code = 2232) 57 MG/DL HDL CHOLESTEROL (test code = 2220) 70 MG/DL CALC LDL CHOL (test code = 2237) 41 MG/DL RISK RATIO LDL/HDL (test cod e = 2238) 0.59 RATIO Eduardo MitchellLIPID [id number] 00:00:00* Test Item Value Reference Range Interpretation Comme nts CHOLESTEROL (test code = 2210) 142 MG/DL TRIGLYCERIDES (test code = 2232) 83 MG/DL HDL CHOLESTEROL (test code = 2220) 57 MG/DL CALC LDL CHOL (test code = 2237) 68 MG/DL RISK RATIO LDL/HDL (test cod e = 2238) 1.19 RATIO Eduardo MitchellCOMPREHENSIVE METABOLIC [id number] 00:00:00* Test Item Value Reference Range Interpretation Comme nts GLUCOSE (test code = 2217) 107 MG/DL BUN (test code = 2208) 11 MG/DL CREATININE (test code = 2214) 0.88 MG/DL eGFR (2020 CKD-EPI) (test code = 94465) 103 ML/MIN/1.73 CALC BUN/CREAT (test code = 2235) 13 RATIO SODIUM (test code = 2231) 139 MEQ/L POTASSIUM (test code = 2228) 4.2 MEQ/L CHLORIDE (test code = 2215) 101 MEQ/L CARBON DIOXIDE (test code = 2206) 26 MEQ/L CALCIUM (test code = 2209) 9.6 MG/DL PROTEIN, TOTAL (test code = 2229) 7.0 G/DL ALBUMIN (test code = 2201) 4.8 G/DL CALC GLOBULIN (test code = 2240) 2.2 G/DL CALC A/G RATIO (test code = 2234) 2.2 RATIO BILIRUBIN, TOTAL (test code = 2207) 0.6 MG/DL ALKALINE PHOSPHATASE (test code = 2204) 108 U/L AST (test code = 2218) 22 U/L ALT (test code = 2219) 29 U/L Eduardo MitchellHEMOGLOBIN [id number] 00:00:00* Test Item Value Reference Range Interpretation Comme nts HEMOGLOBIN A1c (test code = 92131) 5.9 % Eduardo MitchellCOMPREHENSIVE METABOLIC [id number] 00:00:00* Test Item Value Reference Range Interpretation Comme nts GLUCOSE (test code = 2217) 113 MG/DL BUN (test code = 2208) 16 MG/DL CREATININE (test code = 2214) 0.91 MG/DL eGFR (2020 CKD-EPI) (test code = 64899) 101 ML/MIN/1.73 CALC BUN/CREAT (test code = 2235) 18 RATIO SODIUM (test code = 2231) 142 MEQ/L POTASSIUM (test code = 2228) 4.4 MEQ/L CHLORIDE (test code = 2215) 102 MEQ/L CARBON DIOXIDE (test code = 2206) 25 MEQ/L CALCIUM (test code = 2209) 9.9 MG/DL PROTEIN, TOTAL (test code = 2229) 7.7 G/DL ALBUMIN (test code = 2201) 5.1 G/DL CALC GLOBULIN (test code = 2240) 2.6 G/DL CALC A/G RATIO (test code = 2234) 2.0 RATIO BILIRUBIN, TOTAL (test code = 2207) 0.5 MG/DL ALKALINE PHOSPHATASE (test code = 2204) 110 U/L AST (test code = 2218) 27 U/L ALT (test code = 2219) 29 U/L Eduardo MitchellHEMOGLOBIN [id number] 00:00:00* Test Item Value Reference Range Interpretation Comme [facility] HEMOGLOBIN A1c (test code = 86902) 6.1 % Eduardo MitchellCOMPREHENSIVE METABOLIC [id number] 00:00:00* Test Item Value Reference Range Interpretation Comme nts GLUCOSE (test code = 2217) 118 MG/DL BUN (test code = 2208) 12 MG/DL CREATININE (test code = 2214) 0.84 MG/DL eGFR (2020 CKD-EPI) (test code = 77349) 106 ML/MIN/1.73 CALC BUN/CREAT (test code = 2235) 14 RATIO SODIUM (test code = 2231) 145 MEQ/L POTASSIUM (test code = 2228) 4.0 MEQ/L CHLORIDE (test code = 2215) 103 MEQ/L CARBON DIOXIDE (test code = 2206) 23 MEQ/L CALCIUM (test code = 2209) 10.0 MG/DL PROTEIN, TOTAL (test code = 2229) 7.3 G/DL ALBUMIN (test code = 2201) 4.8 G/DL CALC GLOBULIN (test code = 2240) 2.5 G/DL CALC A/G RATIO (test code = 2234) 1.9 RATIO BILIRUBIN, TOTAL (test code = 2207) 0.5 MG/DL ALKALINE PHOSPHATASE (test code = 2204) 111 U/L AST (test code = 2218) 47 U/L ALT (test code = 2219) 55 U/L Eduardo MitchellLIPID [id number] 00:00:00* Test Item Value Reference Range Interpretation Comme nts CHOLESTEROL (test code = 2210) 152 MG/DL TRIGLYCERIDES (test code = 2232) 104 MG/DL HDL CHOLESTEROL (test code = 2220) 60 MG/DL CALC LDL CHOL (test code = 2237) 73 MG/DL RISK RATIO LDL/HDL (test cod e = 2238) 1.22 RATIO Eduardo Banks StephenMICROALBUMIN/CREATININE, RANDOM AND [id number] 00:00:00* Test Item Value Reference Range Interpretation Comme nts CREATININE, URINE, RANDOM (t est code = 2072) 209.6 MG/DL ALBUMIN, URINE, RANDOM (test code = 27227) 0.9 MG/DL CALC ALBUMIN/CREAT, RND (lexie t code = 09260) 4 MG/G Eudardo Banks StephenACUTE HEPATITIS [id number] 00:00:00* Test Item Value Reference Range Interpretation Comme nts HEPATITIS A IgM (test code = 96419) NON-REACTIVE HEPATITIS B CORE IgM (test c ode = 4644) NON-REACTIVE HEPATITIS B SURF AG (test co de = 2739) NON-REACTIVE HEPATITIS C ANTIBODY (test c ode = 4675) NON-REACTIVE INTERPRETATION HEPATITIS A: (test code = 2552) (NOTE) INTERPRETATION HEPATITIS B: (test code = 61115) (NOTE) INTERPRETATION HEPATITIS C: (test code = 94356) (NOTE) Eduardo F StephenHEMOGLOBIN [id number] 00:00:00* Test Item Value Reference Range Interpretation Comme nts HEMOGLOBIN A1c (test code = 64721) 8.8 % Eduardo Mitchell Notes Date/Time Note Provider Source Eduardo Beatty [facility]
[2024-07-05 15:35] LABS: Specific Gravity 1.019 (1.005-1.030); Sqamous Epithelial None Seen /HPF (None Seen); Urine Bacteria None Seen /HPF (<20); Urine Bilirubin NEGATIVE (Negative); Urine Blood Negative (Negative); Urine Clarity Clear (Clear); Urine Color Light-Yellow (Yellow); Urine Culture Reflex Order NOT NEEDED; Urine Glucose NEGATIVE (Negative); Urine Ketones NEGATIVE (Negative); Urine Microscopic Reflex YN ORDER UMIC; Urine Nitrite NEGATIVE (Negative); Urine Protein NEGATIVE (Negative); Urine Urobilinogen Normal (Normal); Urine WBC None Seen /HPF (<5); Urine Yeast (Budding) Trace /HPF (None Seen)
[2024-07-05 15:49] LABS: Barbiturates NEGATIVE (NEGATIVE); Benzodiazepines NEGATIVE (NEGATIVE); Cocaine NEGATIVE (NEGATIVE); METHAMPHETAM NEGATIVE (NEGATIVE); Methadone NEGATIVE (NEGATIVE); Opiates NEGATIVE (NEGATIVE); Phencyclidine NEGATIVE (NEGATIVE); THC Cannibis NEGATIVE (NEGATIVE)
[2024-07-05 16:35] LABS: Absolute Lymphocytes (CBC) 1.2 K/uL (0.7-4.9); Absolute Monocytes 0.3 K/uL (0.1-1.3); Absolute Neutrophil 3.7 K/uL (1.8-8.0); Basophils % 0.5 % (0-1.3); Eosinophils % 0.9 % (0-4.4); Hemoglobin 13.6 g/dL (13.6-17.9); Lymphocytes % 22.6 % (15.3-44.8); MCH 32.2 pg (27.0-35.0); MCHC 34.1 g/dL (32.0-36.0); MCV 94.7 fL (80-100); MPV 8.8 fL (7.6-11.3); Monocytes % 5.3 % (3.3-12.3); Neutrophils % 70.7 % (41.7-73.7); Nucleated Red Blood Cells % 0.1 % (0-0); Platelets 174 thou/uL (152-406); RBC Red Blood Cell Count 4.22 M/uL (4.33-5.43); Red Cell Distribution Width 13.6 % (12.1-15.2)
[2024-07-05 16:50] LABS: PT Prothrombin Time 11.9 SECONDS (9.4-12.5); PTT, Activated Partial Thromb 39.9 SECONDS (24.3-36.9); Protime INR 1.06
[2024-07-05 16:55] LABS: ALT/SGPT 28 U/L (16-61); AST/SGOT 22 U/L (15-37); Albumin 4.3 g/dL (3.4-5.0); Albumin/Globulin Ratio 1.3 (1.1-1.8); Alkaline Phosphatase 81 U/L (45-117); Anion Gap 8.9 mEq/L (5.0-15.0); BUN Blood Urea Nitrogen 15 mg/dL (7-18); Bicarbonate 30 mEq/L (21-32); Bilirubin Direct 0.2 mg/dL (0-0.2); Bilirubin Indirect, Calculated 0.4 mg/dL (0.2-0.8); Bilirubin Total 0.6 mg/dL (0.2-1.0); Globulin 3.2 g/dL (2.3-3.5); Glomerular Filtration Rate 89 ml/min (=/>90); Glucose Level 112 mg/dL (74-106); Potassium 3.9 mEq/L (3.5-5.1); Protein, Total 7.5 g/dL (6.4-8.2); Sodium Level 142 mEq/L (136-145)
--- NOTE | 2024-07-05 18:04 | ER ---
Nurse's Notes [facility] Name: Brad Cisneros Age: 54 yrs Sex: Male : 1970 Arrival Date: 07/05/2024 Time: 14:33 Bed 15 Private MD: Diagnosis: Schizophrenia, unspecified;Altered mental status, unspecified Presentation: 07/05 14:49 Chief complaint: Police state that bystanders called 911 because pt was acting ph erratically under an over pass, pt hx of schizophrenia, denies HI or SI. Coronavirus screen: Vaccine status: unknown. Ebola Screen: No symptoms or risks identified at this time. Initial Sepsis Screen: Does the patient meet any 2 criteria? No. Patient's initial sepsis screen is negative. Does the patient have a suspected source of infection? No. Patient's initial sepsis screen is negative. Risk Assessment: Do you want to hurt yourself or someone else? Patient reports no desire to harm self or others. Onset of symptoms was July 05, 2024. 14:49 Method Of Arrival: Law Enforcement: Gerald Reynoso Counts include 234 beds at the [facility] 14:49 Acuity: MAURICE 3 ph Historical: - Allergies: 15:00 No Known Allergies; ph - Home Meds: 15:00 Haldol Oral [Active]; lisinopril Oral [Active]; Metformin Oral [Active]; [place]-3 oral ph [Active]; - PMHx: 15:00 diabetes mellitus; Hypertensive disorder; Schizophrenia; ph - Immunization history:: Adult Immunizations unknown. - Infectious Disease History:: Denies. - Family history:: not pertinent. - Social history:: Smoking status: unknown. - Hospitalizations: : No recent hospitalization is reported. Screenin:05 [facility] ED Fall Risk Assessment (Adult) History of falling in the last 3 months, ph including since admission No falls in past 3 months (0 pts) Confusion or Disorientation No (0 pts) Intoxicated or Sedated No (0 pts) Impaired Gait No (0 pts) Mobility Assist Device Used No (0 pt) Altered Elimination No (0 pt) Score/Fall Risk Level 0 - 2 = Low Risk Oriented to surroundings, Maintained a safe environment, Hourly rounding (assess needs \\T\\ fall precautionary measures) done. Abuse screen: Denies threats or abuse. Denies injuries from another. Nutritional screening: No deficits noted. Tuberculosis screening: No symptoms or risk factors identified. Assessment: 16:53 General: Appears in no apparent distress. Behavior is cooperative. Pain: Denies pain. ph Neuro: Level of Consciousness is awake, alert, obeys commands, Oriented to person, place, time, situation. Cardiovascular: Capillary refill < 3 seconds in bilateral fingers Patient's skin is warm and dry. Respiratory: Airway is patent Respiratory effort is even, unlabored. Derm: Skin is pink, warm \\T\\ dry. 19:00 General: Pt Denies any SI or HI. Pain: Denies pain. Neuro: Level of Consciousness is jw7 awake, alert, obeys commands, Oriented to person, place, time, situation. Cardiovascular: Heart tones S1 S2 present Capillary refill < 3 seconds Patient's skin is warm and dry. Respiratory: Airway is patent Respiratory effort is even, unlabored, Respiratory pattern is regular, symmetrical. GI: Abdomen is flat, non-distended, Bowel sounds present X 4 quads. Abd is soft and non tender X 4 quads. : No deficits noted. No signs and/or symptoms were reported regarding the genitourinary system. EENT: No deficits noted. No signs and/or symptoms were reported regarding the EENT system. Derm: Skin is intact, is healthy with good turgor, Skin is dry, Skin is normal, Skin temperature is warm. Musculoskeletal: Circulation, motion, and sensation intact. Range of motion: intact in all extremities. 19:00 General: Appears in no apparent distress. comfortable, Behavior is cooperative. jw7 19:02 General: Per MD pt does not require a sitter. Patient is not suicidal or homicidal.. vc1 20:00 Reassessment: Patient appears in no apparent distress at this time. No changes from jw7 previously documented assessment. Patient and/or family updated on plan of care and expected duration. Pain level reassessed. Patient is alert, oriented x 3, equal unlabored respirations, skin warm/dry/pink. Psych: 15:12 [place] Suicide Severity Screening: In the past month, have you wished you were ph or wished you could go to sleep and not wake up? Patient responds "No." "In the past month, have you actually had any thoughts of killing yourself?" Patient responds "no." "In your lifetime, have you ever done anything, started to do anything, or prepared to do anything to end your life?" Patient responds "no.". Subjective: Patient's mood is elevated, Delusions are denied, Hallucinations are denied Having thoughts of denies SI or HI. Objective: Patient is cooperative. Safety Checks: Personal items have not been removed. Door is open. No visitors are present at this time. Pt denies substance abuse. 19:10 [place] Suicide Severity Screening: In the past month, have you wished you were ph or wished you could go to sleep and not wake up? Patient responds "No." "In the past month, have you actually had any thoughts of killing yourself?" Patient responds "no." "In your lifetime, have you ever done anything, started to do anything, or prepared to do anything to end your life?" Patient responds "no.". Subjective: Patient's mood is elevated, Delusions are denied, Hallucinations are denied. Objective: Patient is cooperative. Interventions: Searched person for dangerous items. Urine collected and sent for urine drug test. Safety Checks: Personal items have not been removed. Door is open. No visitors are present at this time. Pt denies substance abuse. 19:10 Commitment: Commitment papers completed. ph Vital Signs: 15:13 BP 137 / 98; Pulse 91; Resp 18; Temp 97.8; Pulse Ox 98% on R/A; ph 19:00 BP 138 / 95; Pulse 95; Resp 17 S; Temp 98(TE); Pulse Ox 99% on R/A; jw7 ED Course: 14:40 Patient arrived in ED. ap3 14:41 Chanel Villarreal, RN is Primary Nurse. ph 14:42 Mahendra Oreilly MD is Attending Physician. rn 14:51 Triage completed. ph 14:52 Arm band placed on Patient placed in an exam room. ph 15:11 Patient has correct armband on for positive identification. Bed in low position. Call ph light in reach. Side rails up X 1. Pulse ox on. NIBP on. Warm blanket given. 15:58 Initial lab(s) drawn, by me, sent to lab. Inserted saline lock: 22 gauge in right ph antecubital area, using aseptic technique. Blood collected. Flushed with 10 mL NS. 19:00 Provided Education on: Reason/need for being transferred. jw7 19:17 jayden with [facility] to do nurse to nurse 1916. [facility] 19:35 pt was accepted to [facility] by Dr. Jarrell Mendoza \\T\\1921. AOC given by Jayden [facility] Ekta \\T\\ 1921. ems willl transfer pt. ETA 15 mins. 20:16 No provider procedures requiring assistance completed. IV discontinued, intact, mb9 bleeding controlled, No redness/swelling at site. Pressure dressing applied. Administered Medications: No medications were administered Medication: 15:13 VIS not applicable for this client. ph Outcome: 18:03 ER care complete, transfer ordered by . rn 20:16 Transferred by ground EMS jw7 20:16 Condition: stable 20:16 Instructed on the need for transfer, 20:17 Patient left the ED. [facility] Signatures: Mahendra Oreilly MD MD rn Hall, Patricia RN RN Citlaly Friend RN RN [id number] Crista, Lia RN RN vc1 Michaela Boo RN RN 7 Chely Mackenzie RN RN mb9 Sharri Borja [facility] Corrections: (The following items were deleted from the chart) 15:00 14:49 Chief complaint: Police state that bystanders called 911 because pt was acting ph erratically under and over pass, pt hx of schizophrenia, denies HI or SI. ph 20:29 19:10 General: Appears in no apparent distress. comfortable, Behavior is cooperative, [facility] 20:29 19:10 Pain: Denies pain. ph jw 20:29 19:10 Neuro: Level of Consciousness is awake, alert, obeys commands, Oriented to jw person, place, time, situation, ph 20:29 19:10 Cardiovascular: Heart tones S1 S2 present Capillary refill < 3 seconds Patient's jw7 skin is warm and dry. ph 20:29 19:10 Respiratory: Airway is patent Respiratory effort is even, unlabored, Respiratory [facility] pattern is regular, symmetrical, ph 20:29 19:10 GI: Abdomen is flat, non-distended, Bowel sounds present X 4 quads. Abd is soft jw7 and non tender X 4 quads. ph 20:29 19:10 : No deficits noted. No signs and/or symptoms were reported regarding the [facility] genitourinary system. ph 20:29 19:10 EENT: No deficits noted. No signs and/or symptoms were reported regarding the jw7 EENT system. ph 20:29 19:10 Derm: Skin is intact, is healthy with good turgor, Skin is dry, Skin is normal, jw7 Skin temperature is warm ph 20:29 19:10 Musculoskeletal: Circulation, motion, and sensation intact. Range of motion: jw7 intact in all extremities, ph 20:29 19:20 General: Pt Denies any SI or HI. ph jw7
--- NOTE | 2024-07-05 18:04 | EDPHYS ---
Physician Documentation [facility] Name: Brad Cisneros Age: 54 yrs Sex: Male : 1970 Arrival Date: 07/05/2024 Time: 14:33 Bed 15 Private MD: ED Physician Mahendra Oreilly HPI: 07/05 14:49 This 54 yrs old Male presents to ER via Unassigned with complaints of AMS. rn 14:49 Onset: The symptoms/episode began/occurred at an unknown time. Possible causes: rn unknown. Current symptoms: In the emergency department the patient's symptoms are unchanged from the initial presentation. Patient brought in by police under NIELS for strange behavior, was found underneath overpass dancing on a ball and there was concern that he was going to run out into traffic so brought in for mental evaluation. Patient denies any pain. Patient does not know if he takes medication. Per report and chart review patient has schizophrenia and bipolar disorder. Patient denies fever/vomiting/diarrhea. Does not feel ill.. Historical: - Allergies: 15:00 No Known Allergies; ph - Home Meds: 15:00 Haldol Oral [Active]; lisinopril Oral [Active]; Metformin Oral [Active]; [place]-3 oral ph [Active]; - PMHx: 15:00 diabetes mellitus; Hypertensive disorder; Schizophrenia; ph - Immunization history:: Adult Immunizations unknown. - Infectious Disease History:: Denies. - Family history:: not pertinent. - Social history:: Smoking status: unknown. - Hospitalizations: : No recent hospitalization is reported. ROS: 14:49 Constitutional: Negative for fever, chills, and weight loss, Cardiovascular: Negative rn for chest pain, palpitations, and edema, Respiratory: Negative for shortness of breath, cough, wheezing, and pleuritic chest pain, Abdomen/GI: Negative for abdominal pain, nausea, vomiting, diarrhea, and constipation, Back: Negative for injury and pain, : Negative for injury, bleeding, discharge, and swelling, MS/Extremity: Negative for injury and deformity, Skin: Negative for injury, rash, and discoloration, Neuro: Negative for headache, weakness, numbness, tingling, and seizure, Psych: Negative for suicide ideation, homicidal ideation Exam: 14:49 Constitutional: This is a well developed, well nourished patient who is awake, alert, rn and in no acute distress. Head/Face: Normocephalic, atraumatic. Cardiovascular: Regular rate and rhythm. No pulse deficits. Respiratory: No increased work of breathing, no retractions or nasal flaring. Abdomen/GI: Soft, non-tender MS/ Extremity: Pulses equal, no cyanosis. Neurovascular intact. Full, normal range of motion. Equal circumference. Neuro: Awake and alert, GCS 15, oriented to person, place, not time. Cranial nerves II-XII grossly intact. Motor strength 5/5 in all extremities. Sensory grossly intact. Cerebellar exam normal. Normal gait. 16:43 ECG was reviewed by the Attending Physician. rn Vital Signs: 15:13 BP 137 / 98; Pulse 91; Resp 18; Temp 97.8; Pulse Ox 98% on R/A; ph 19:00 BP 138 / 95; Pulse 95; Resp 17 S; Temp 98(TE); Pulse Ox 99% on R/A; jw7 MDM: 14:42 Patient medically screened. rn 18:02 Differential Diagnosis: electrolyte abnormality, alcohol intoxication, volume depletion.rn 18:02 Data reviewed: vital signs, nurses notes, lab test result(s), EKG, and as a result, I rn will admit patient. Care significantly affected by the following chronic conditions: schizophrenia. Counseling: I had a detailed discussion with the patient and/or guardian regarding the historical points, exam findings, and any diagnostic results supporting the discharge/admit diagnosis, lab results, the need for further work-up and treatment in the hospital, the need to transfer to another facility. ED course: Patient cooperative, medically cleared, will get [facility] doctor to talk with him. Patient has NIELS filed by police.. 07/05 15:26 Order name: Urinalysis w/ reflexes; Complete Time: 16:06 EDMS 07/05 15:26 Order name: Urine Drug Screen; Complete Time: 16:06 EDMS 07/05 16:32 Order name: Basic Metabolic Panel; Complete Time: 17:26 EDMS 07/05 16:32 Order name: Liver (Hepatic) Function; Complete Time: 17:26 EDMS 07/05 16:32 Order name: Acetaminophen Level; Complete Time: 17:26 EDMS 07/05 16:32 Order name: Alcohol Serum/Plasma; Complete Time: 17:26 EDSD 08 16:32 Order name: Salicylates Level; Complete Time: 17:26 EDSD 08 16:32 Order name: CBC with Automated Diff; Complete Time: 16:43 EDSD 07/05 16:33 Order name: Protime (+INR); Complete Time: 17:26 EDSD 08 16:33 Order name: PTT, Activated Partial Thromb; Complete Time: 17:26 EDSD 07/05 14:43 Order name: EKG - Nurse/Tech; Complete Time: 16:53 rn 07/05 14:43 Order name: IV Saline Lock; Complete Time: 15:58 rn 07/05 14:43 Order name: Labs collected and sent; Complete Time: 15:58 rn EC:43 Rate is 76 beats/min. Rhythm is regular. QRS Hermann is Normal. NE interval is normal. QRS rn interval is normal. QT interval is normal. No Q waves. T waves are Normal. No ST changes noted. Clinical impression: NSR w/ Non-specific ST/T Changes. Interpreted by me. Reviewed by me. Administered Medications: No medications were administered Disposition Summary: 07/05/24 18:03 Transfer Ordered Notes: Transfer Location: [facility] rn Reason: Higher level of care rn Condition: Stable rn Problem: chronic rn Symptoms: are unchanged rn Accepting Physician: (07/05/24 20:17) jw7 Diagnosis - Schizophrenia, unspecified rn - Altered mental status, unspecified rn Forms: - Medication Reconciliation Form rn - SBAR form rn Signatures: Dispatcher [employer] EDMahendra Steinberg MD MD rn Hall, Patricia, RN RN ph Waits, Jodi RN RN jw7 Corrections: (The following items were deleted from the chart) 14:43 14:43 Suicide Screening ([place]) ordered. rn rn 18:40 17:04 Urinalysis+U.LAB.BRZ ordered. EDSD EDMS 18:40 17:04 URINE DRUG SCREEN+UC.LAB.BRZ ordered. EDSD EDMS 18:41 17:04 ACETAMINOPHEN+C.LAB.BRZ ordered. EDSD EDMS 18:41 17:04 BASIC METABOLIC PANEL+C.LAB.BRZ ordered. EDSD EDMS 18:41 17:04 CBC+H.LAB.BRZ ordered. EDMS EDMS 18:41 17:04 ETHANOL+C.LAB.BRZ ordered. EDMS EDMS 18:41 17:04 HEPATIC FUNCTION+C.LAB.BRZ ordered. EDMS EDMS 18:41 17:04 PROTIME (+INR)+COAG.LAB.BRZ ordered. EDMS EDMS 18:41 17:04 PTT, ACTIVATED+COAG.LAB.BRZ ordered. EDMS EDMS 18:41 17:04 SALICYLATE+C.LAB.BRZ ordered. EDMS EDMS 20:17 18:03 rn jw7
[2024-07-06 07:15] VITALS: BP 137/98; TEMP 97.8; O2SAT 98
== END 2024-07-05 20:17 ==
LOC: ER 14:33
DX: F20.9 Schizophrenia, unspecified (principal)
CPT/HCPCS: 36415; 80048; 80076; 80143; 80179; 80307; 81001; 82077; 85025; 85610; 85730; 93005

== ENCOUNTER 2024-08-07 21:52 | Emergency (ER) | payer OTHER ==
--- OUTSIDE RECORDS SUMMARY | 2024-08-07 21:56 | XMS REPORT | Continuity of Care Document ---
Author Name Unknown Address [address] [place] [address] [facility] Address 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 Ordering Clinician Indication Dosage Frequency Signature (SIG) Comments Components Source Risperdal 2 mg tablet -29 00:00: 00 Yes 1mg Eduardo Mitchell atorvastati n 10 mg tablet 8-09 00:00: 00 Yes mg Eduardo Mitchell benztropine 0.5 mg tablet 06-23 00:00: 00 Yes 1mg Eduardo Mitchell trazodone 50 mg tablet - 00:00: 00 Yes 1mg Eduardo Mitchell aripiprazol e 10 mg tablet 06-23 00:00: 00 Yes 1mg Eduardo Mitchell escitalopra m 5 mg tablet - 00:00: 00 Yes 3mg Eduardo Mitchell risperidone 3 mg tablet 06-23 00:00: 00 Yes 2mg Eduardo Mitchell benztropine 0.5 mg tablet 0 - 00:00: 00 Yes 1mg Eduardo Mitchell trazodone 50 mg tablet 0 - 00:00: 00 Yes 1mg Eduardo Mitchell aripiprazol e 10 mg tablet 0 - 00:00: 00 Yes 1mg Eduardo Mitchell escitalopra m 5 mg tablet 0 - 00:00: 00 Yes 3mg Eduardo Mitchell risperidone 3 mg tablet - 00:00: 00 Yes 2mg Eduardo Mitchell trazodone 50 mg tablet 0 - 00:00: 00 Yes 1mg Eduardo Mitchell aripiprazol e 10 mg tablet 0 - 00:00: 00 Yes 1mg Eduardo Mitchell escitalopra m 5 mg tablet 0 - 00:00: 00 Yes 3mg Eduardo Mitchell risperidone 3 mg tablet 0 - 00:00: 00 Yes 2mg Eduardo Mitchell escitalopra m 5 mg tablet - 00:00: 00 Yes mg Eduardo Mitchell risperidone 3 mg tablet 0 - 00:00: 00 Yes mg Eduardo Mitchell trazodone 50 mg tablet 0 - 00:00: 00 Yes mg Eduardo Mitchell aripiprazol e 10 mg tablet - 00:00: 00 Yes mg Eduardo Mitchell TAKE 1 TABLET AT BEDTIME. 0 - 00:00: 00 Yes 10 Eduardo Mitchell TAKE 2 TABLETS DAILY. 0 - 00:00: 00 Yes 3 Eduardo Mitchell TAKE 3 TABLETS IN THE MORNING DAILY 0 -06 00:00: 00 Yes 5 Eduardo Mitchell trazodone 50 mg tablet 0 03-24 00:00: 00 Yes 1mg Eduardo Mitchell metformin 500 mg tablet 0 - 00:00: 00 Yes 1mg Eduardo Mitchell ONDANSETRON ODT 4 MG TBDP 0 -13 00:00: 00 Yes Eduardo Mitchell DICYCLOMINE HYDROCHLORI DE 20 MG TABS 03-12 00:00: 00 Yes Eduardo Mitchell FAMOTIDINE 20 MG TABS 03-11 00:00: 00 Yes Eduardo Mitchell atorvastati n 10 mg tablet 3- 00:00: 00 Yes mg Eduardo Mitchell TAKE 1 TABLET BY MOUTH ONCE DAILY 2- 00:00: 00 04-11 00:00 :00 No 10 Eduardo Mitchell ESCITALOPRA M OXALATE 5 MG TABS 12-30 00:00: 00 Yes Eduardo Mitchell TAKE 1 TABLET AT BEDTIME. 12-30 00:00: 00 04-11 00:00 :00 No 10 Eduardo Mitchell TAKE 1 TABLET AT BEDTIME NEEDED. 12-30 00:00: 00 04-11 00:00 :00 No 50 Eduardo Mitchell TAKE 3 TABLETS IN THE MORNING DAILY 12-30 00:00: 00 04-11 00:00 :00 No 5 Eduardo Mitchell TAKE 2 TABLETS DAILY. 12-30 00:00: 00 04-11 00:00 :00 No 3 Eduardo Mitchell TAKE 1 TABLET BY MOUTH DAILY 12-14 00:00: 00 Yes 10 Eduardo Mitchell RISPERIDONE 3 MG TABS 12-03 00:00: 00 Yes Eduardo Mitchell TAKE 2 TABLETS DAILY. 12-03 00:00: 00 04-11 00:00 :00 No 3 Eduardo Mitchell TAKE 1 TABLET AT BEDTIME NEEDED. 1- 00:00: 00 04-11 00:00 :00 No 50 Eduardo Mitchell TAKE 3 TABLETS IN THE MORNING DAILY 1- 00:00: 00 04-11 00:00 :00 No 5 Eduardo Mitchell TAKE 1 TABLET AT BEDTIME. 1- 00:00: 00 04-11 00:00 :00 No 10 Eduardo Mitchell TAKE 1 TABLET BY MOUTH AT BEDTIME 2022-11 00:00: 00 Yes Eduardo Mitchell TAKE 3 TABLETS IN THE MORNING DAILY 2022-11 00:00: 00 04-11 00:00 :00 No 5 Eduardoanthony Mitchell TAKE 2 TABLETS DAILY. 2022-11 00:00: 00 04-11 00:00 :00 No 3 Eduardo Darren Mitchell TAKE 1 TABLET AT BEDTIME NEEDED. 2022-11 00:00: 00 04-11 00:00 :00 No 50 Eduardoanthony Mitchell TAKE 1 TABLET AT BEDTIME. 2022-11 00:00: 00 04-11 00:00 :00 No 10 Eduardo Darren Mitchell TAKE 3 TABLETS BY MOUTH ONCE DAILY IN THE MORNING 2022-11 00:00: 00 Yes Eduardo Darren Mitchell TAKE 2 TABLETS BY MOUTH ONCE DAILY 2022-11 00:00: 00 Yes Eduardo Mitchell TAKE 2 TABLETS DAILY. 2022-11 00:00: 00 04-11 00:00 :00 No 3 Eduardo Mitchell TAKE 1 TABLET AT BEDTIME. 2022-11 00:00: 00 04-11 00:00 :00 No 10 Eduardo Darren Mitchell TAKE 1 TABLET AT BEDTIME NEEDED. 2022-11 00:00: 00 04-11 00:00 :00 No 50 Eduardo Mitchell TAKE 3 TABLETS IN THE MORNING DAILY 2022-11 00:00: 00 04-11 00:00 :00 No 5 Eduardo Darren Mitchell LISINOPRIL 10 MG TABS 2022-11 00:00: 00 04-11 00:00 :00 No Eduardoanthony Mitchell TAKE 1 TABLET DAILY. 2022-11 00:00: 00 04-11 00:00 :00 No 10 Eduardo Darren Mitchell ESCITALOPRA M OXALATE 5 MG TABS 2022-11 00:00: 00 Yes Eduardo Mitchell TAKE 1 TABLET AT BEDTIME NEEDED. 2022-11 00:00: 00 04-11 00:00 :00 No 50 Eduardo Darren Mitchell TAKE 1 TABLET AT BEDTIME. 2022-11 00:00: 00 04-11 00:00 :00 No 10 Eduardo Darren Mitchell TAKE 3 TABLETS IN THE MORNING DAILY 2022-11 00:00: 00 04-11 00:00 :00 No 5 Eduardo Mitchell TAKE 2 TABLETS DAILY. 2022-11 00:00: 00 04-11 00:00 :00 No 3 Eduardo Mitchell TAKE 1 TABLET BY MOUTH DAILY 08-26 00:00: 00 04-11 00:00 :00 No 20 Eduardo Mitchell ESCITALOPRA M OXALATE 5 MG TABS 08-12 00:00: 00 Yes Eduardo Mitchell ARIPIPRAZOL E 10 MG TABS 08-12 00:00: 00 Yes Eduardo Mitchell TAKE 2 TABLETS BY MOUTH ONCE DAILY 08-12 00:00: 00 Yes Eduardo Mitchell TAKE 2 TABLETS DAILY. 08-12 00:00: 00 04-11 00:00 :00 No 3 Eduardo Mitchell TAKE 1 TABLET AT BEDTIME. 08-12 00:00: 00 04-11 00:00 :00 No 10 Eduardo Mitchell TAKE 3 TABLETS IN THE MORNING DAILY 08-12 00:00: 00 04-11 00:00 :00 No 5 Eduardo Mitchell TAKE 1 TABLET AT BEDTIME NEEDED. 08-12 00:00: 00 04-11 00:00 :00 No 50 Eduardo Mitchell TAKE 1 TABLET AT BEDTIME. 08-07 00:00: 00 Yes 10 Eduardo Mitchell TAKE 1 TABLET AT BEDTIME NEEDED. 08-07 00:00: 00 04-11 00:00 :00 No 50 Eduardo Mitchell TAKE 2 TABLETS DAILY. 08-07 00:00: 00 04-11 00:00 :00 No 3 Eduardo Mitchell APPLY 1/2" RIBBON TO LEFT EYE TWICE DAILY . 07-23 00:00: 00 Yes Eduardo Mitchell APPLY 1/2 " RIBBON TO THE LEFT EYE TWICE DAILY. 07-23 00:00: 00 04-11 00:00 :00 No [id number] Eduardo Mitchell TAKE 2 TABLETS BY MOUTH ONCE DAILY 0 8-16 00:00: 00 Yes Eduardo F Stephen TAKE 3 TABLETS BY MOUTH ONCE DAILY IN THE MORNING 815 00:00: 00 Yes Eduardo F Stephen TAKE 3 TABLETS IN THE MORNING DAILY 0 815 00:00: 00 04-11 00:00 :00 No 5 Eduardo Darren Mitchell TAKE 2 TABLETS DAILY. 15 00:00: 00 04-11 00:00 :00 No 3 Eduardo Mitchell TAKE 1 TABLET AT BEDTIME NEEDED. 15 00:00: 00 04-11 00:00 :00 No 50 Eduardo Darren Mitchell LISINOPRIL 10 MG TABS 8-11 00:00: 00 04-11 00:00 :00 No Eduardo Darren Mitchell TAKE 1 TABLET BY MOUTH TWICE DAILY 15 00:00: 00 Yes Eduardo Darren Mitchell TAKE 1 TABLET BY MOUTH TWICE DAILY 15 00:00: 00 Yes Eduardo Mitchell RISPERIDONE 3 MG TABS 15 00:00: 00 Yes Eduardo Darren Mitchell TAKE 1 TABLET BY MOUTH ONCE DAILY AT BEDTIME 15 00:00: 00 04-11 00:00 :00 No Eduardo Darren Mitchell TAKE 1 TABLET BY MOUTH ONCE DAILY 12 00:00: 00 04-11 00:00 :00 No Eduardo Darren Mitchell TAKE 1 TABLET BY MOUTH TWICE DAILY. 15 00:00: 00 04-11 00:00 :00 No 1000 Eduardo Mitchell TAKE 1 TABLET BY MOUTH DAILY 15 00:00: 00 04-11 00:00 :00 No 20 Eduardo Darren Mitchell TAKE 1 TABLET TWICE DAILY. 15 00:00: 00 04-11 00:00 :00 No 1 Eduardo Mitchell TAKE 1 TABLET TWICE DAILY AFTER MEALS. 615 00:00: 00 04-11 00:00 :00 No 2 Eduardo Darren Mitchell TAKE 1 TABLET BY MOUTH DAILY 517 00:00: 00 04-11 00:00 :00 No 10 Eduardo Mitchell TAKE 1 TABLET DAILY. 5-04 00:00: 00 04-11 00:00 :00 No 10 Eduardo Mitchell TAKE 1 TABLET TWICE DAILY. 4-25 00:00: 00 04-11 00:00 :00 No 1 Eduardo Mitchell TAKE 1 TABLET BY MOUTH DAILY 4- 00:00: 00 04-11 00:00 :00 No 10 Eduardo Mitchell METFORMIN HYDROCHLORI DE 1000 MG TABS 03-11 00:00: 00 Yes Eduardo Mitchell TAKE 1 TABLET TWICE DAILY. - 00:00: 00 04-11 00:00 :00 No 1 Eduardo Mitchell TAKE 1 TABLET BY MOUTH DAILY 3- 00:00: 00 04-11 00:00 :00 No 10 Eduardo Mitchell TAKE 1 TABLET TWICE DAILY. 3- 00:00: 00 04-11 00:00 :00 No 1000 Eduardo Mitchell TAKE 1 TABLET BY MOUTH DAILY 3-07 00:00: 00 04-11 00:00 :00 No 20 Eduardo Mitchell TAKE 1 TABLET TWICE DAILY AFTER MEALS. 3-07 00:00: 00 04-11 00:00 :00 No 2 Eduardo Mitchell TAKE 1 TABLET TWICE DAILY. 2-14 00:00: 00 04-11 00:00 :00 No 1000 Eduardo Mitchell TAKE 1 TABLET BY MOUTH DAILY 2-14 00:00: 00 04-11 00:00 :00 No 20 Eduardo Mitchell TAKE 1 TABLET BY MOUTH DAILY 2-14 00:00: 00 04-11 00:00 :00 No 10 Eduardo Mitchell TAKE 1 TABLET TWICE DAILY AFTER MEALS. 2-14 00:00: 00 04-11 00:00 :00 No 2 Eduardo Mitchell DICLOFENAC SODIUM DR 75 MG TBEC 1-22 00:00: 00 Yes Eduardo Mitchell TOME ARMIN TABLETA DOS VECES AL BOB 2021-11 2-15 00:00: 00 Yes Eduardo F Stephen TAKE 1 TABLET DAILY. 2021-11 2-15 00:00: 00 04-11 00:00 :00 No Eduardo F Stephen Dose Unknown 2021-11 2- 00:00: 00 04-11 00:00 :00 No Eduardo F Stephen TAKE 1 TABLET BY MOUTH TWICE DAILY 2021-11 2- 00:00: 00 04-11 00:00 :00 No Eduardo F Stephen Dose Unknown 2021-11 2- 00:00: 00 04-11 00:00 :00 No Eduardo F Stephen HALOPERIDOL 2 MG TABS 2021-11 2- 00:00: 00 04-11 00:00 :00 No Eduardo F Stephen FUROSEMIDE 20 MG TABS 2021-11 2- 00:00: 00 04-11 00:00 :00 No Eduardo F Stephen Dose Unknown 2021-11 1-28 00:00: 00 04-11 00:00 :00 No Eduardo F Stephen TRAZODONE HYDROCHLORI DE 50 MG TABS 2021-11 1-07 00:00: 00 04-11 00:00 :00 No Eduardo F Stephen TAKE 1 TABLET BY MOUTH DAILY 2021-11 1-04 00:00: 00 04-11 00:00 :00 No 10 Eduardo F Stephen Dose Unknown 8-10 00:00: 00 Yes Eduardo F Stephen Dose Unknown 8-10 00:00: 00 Yes Eduardo F Stephen Dose Unknown 8-10 00:00: 00 Yes Eduardo F Stephen Dose Unknown 8-10 00:00: 00 Yes Eduardo F Stephen furosemide 20 mg tablet 7-15 00:00: 00 Yes 1mg Eduardo F Stephen lisinopril 10 mg tablet 7-15 00:00: 00 Yes 1mg Eduardo F Stephen haloperidol 2 mg tablet 7-15 00:00: 00 Yes 1mg Eduardo F Stephen metformin 1,000 mg tablet 7-15 00:00: 00 Yes 1mg Eduardo F Stephen haloperidol 2 mg tablet 5-21 00:00: 00 Yes 1mg Eduardo Mitchell metformin 1,000 mg tablet 03-21 00:00: 00 Yes 1mg Eduardo Mitchell Dose Unknown 03-20 00:00: 00 Yes Eduardo Banks Stephen Dose Unknown 0 03-20 00:00: 00 Yes Eduardo F Stephen Dose Unknown 03-20 00:00: 00 Yes Eduardo Mitchell haloperidol 2 mg tablet 03-20 00:00: 00 Yes 1mg Eduardo Mitchell Dose Unknown 03-20 00:00: 00 Yes Eduardo Mitchell Dose Unknown 03-20 00:00: 00 Yes Eduardo Mitchell Dose Unknown 03-20 00:00: 00 Yes Eduardo Mitchell Immunizations Ordered Immunization Name Filled Immunization Name Date Status Comments Source Influenza, seasonal, inj Influenza, seasonal, inj 2023-12-14 00:00:00 Completed Eduardo Mitchell Vital Signs Vital Name Observation Time Observation Value Comments S ource BP Systolic 2024-03-24 10:19:00 Step anthony Mitchell BP Diastolic 2024-03-24 10:19:00 Adalberto phen Darren Mitchell Weight Measured 2024-03-24 10:19:00 Eduardo Mitchell Height Measured 2024-03-24 10:19:00 65.00 inches Eduardo Mitchell Body Temperature 2024-03-24 10:19:00 Eduardo Mitchell Heart Rate 2024-03-24 10:19:00 Gladys en Darren Mitchell Respiratory Rate 2024-03-24 10:19:00 Eduardo Mitchell BP Systolic 2024-03-24 10:15:00 105 mm[Hg] Step hen Darren Mitchell BP Diastolic 2024-03-24 10:15:00 61 mm[Hg] Adalberto phen Darren Mitchell Weight Measured 2024-03-24 10:15:00 120.70 pounds Eduardo Mitchell Height Measured 2024-03-24 10:15:00 65.00 inches Eduardo Mitchell Body Temperature 2024-03-24 10:15:00 97.60 degrees Eduardo Mitchell Heart Rate 2024-03-24 10:15:00 90.00 /min Gladys [...] Stephen BP Systolic 2023-01-13 10:30:00 115 mm[Hg] Milton Mitchell BP Diastolic 2023-01-13 10:30:00 65 mm[Hg] Adalberto Mitchell Weight Measured 2023-01-13 10:30:00 177.00 pounds Eduardo Mitchell Height Measured 2023-01-13 10:30:00 65.00 inches Eduardo Mitchell Body Temperature 2023-01-13 10:30:00 97.40 degrees Eduardo Mitchell Heart Rate 2023-01-13 10:30:00 95.00 /min Gladys Mitchell Respiratory Rate 2023-01-13 10:30:00 25.00 /min Eduardo Mitchell Encounters Start Date/Time End Date/Time Encounter Type Admission Type Attending [facility] Care Department Encounter ID Source 2024-08-05 19:26:07 2024-08-05 19:26:07 Outpatient SFA SFA [id number] Eduardo Mitchell 2024-08-05 00:00:00 2024-08-05 00:00:00 Outpatient Visit SFA [id number] Eduardo Mitchell 2024-07-28 20:13:47 2024-07-28 20:13:47 Outpatient SFA SFA [id number] Eduardo Mitchell 2024-07-27 15:43:01 2024-07-27 15:43:01 Outpatient SFA SFA [id number] Eduardo Mitchell 2024-07-22 09:55:30 2024-07-22 09:55:30 Outpatient SFA SFA [id number] Eduardo Mitchell 2024-07-08 11:14:59 2024-07-08 11:14:59 Outpatient SFA SFA [id number] Eduardo Mitchell 2024-07-07 14:35:22 2024-07-07 14:35:22 Outpatient SFA SFA [id number] Eduardo Mitchell 2024-06-09 08:11:02 2024-06-09 08:11:02 Outpatient SFA SFA [id number] Eduardo Mitchell 2024-04-04 08:16:29 2024-04-04 08:16:29 Outpatient SFA SFA [id number] Eduardo Mitchell 2024-03-24 00:00:00 2024-03-24 00:00:00 Outpatient Visit SFA [id number] Eduardo Mitchell 2024-01-11 12:57:47 2024-01-11 12:57:47 Outpatient SFA SFA [id number] Eduardo Mitchell 2024-01-04 10:36:55 2024-01-04 10:36:55 Outpatient SFA SFA [id number] Eduardo Mitchell 2023-12-30 08:51:56 2023-12-30 08:51:56 Outpatient SFA SFA [id number] Eduardo Mitchell 2023-12-14 13:54:35 2023-12-14 13:54:35 Outpatient SFA SFA [id number] Eduardo Mitchell 2023-12-03 08:48:23 2023-12-03 08:48:23 Outpatient SFA SFA [id number] Eduardo Banks Stephen 2023-10-14 15:05:51 2023-10-14 15:05:51 Outpatient SFA SFA [id number] Eduardo Mitchell 2023-09-23 14:18:15 2023-09-23 14:18:15 Outpatient SFA SFA [id number] Eduardo Mitchell 2023-09-09 13:59:34 2023-09-09 13:59:34 Outpatient SFA SFA [id number] Eduardo Mitchell 2023-08-26 15:02:02 2023-08-26 15:02:02 Outpatient SFA SFA [id number] Eduardo Mitchell 2023-08-12 14:38:40 2023-08-12 14:38:40 Outpatient SFA SFA [id number] Eduardo Mitchell 2023-08-06 15:37:06 2023-08-06 15:37:06 Outpatient SFA SFA [id number] Eduardo Mitchell 2023-07-29 16:33:09 2023-07-29 16:33:09 Outpatient SFA SFA [id number] Eduardo Mitchell 2023-07-14 13:56:45 2023-07-14 13:56:45 Outpatient SFA SFA [id number] Eduardo Mitchell 2023-07-01 16:05:59 2023-07-01 16:05:59 Outpatient SFA SFA [id number] Eduardo Mitchell 2023-06-15 14:40:53 2023-06-15 14:40:53 Outpatient SFA SFA [id number] Eduardo Mitchell 2023-01-14 09:28:02 2023-01-14 09:28:02 Outpatient SFA SFA [id number] Eduardo Mitchell 2023-01-13 09:48:15 2023-01-13 09:48:15 Outpatient SFA SFA [id number] Eduardo Mitchell 2022-12-03 13:55:02 2022-12-03 13:55:[address] [facility] [id number] Eduardo Mitchell 2022-10-03 15:10:29 2022-10-03 15:10:29 Outpatient SFA SFA [id number] Eduardo Mitchell Results Test Description Test Time Test Comments Results Result Co mments Source Eduardo MitchellHEMOGLOBIN A1c [ADDED]2023-09-24 00:00:00* Test Item Value Reference Range Interpretation Comme nts HEMOGLOBIN A1c (test code = 98114) 5.2 % Eduardo MitchellLIPID PANEL [ADDED]2023-09-24 00:00:00* Test Item Value Reference Range Interpretation Comme nts CHOLESTEROL (test code = 2210) 124 MG/DL TRIGLYCERIDES (test code = 2232) 57 MG/DL HDL CHOLESTEROL (test code = 2220) 70 MG/DL CALC LDL CHOL (test code = 2237) 41 MG/DL RISK RATIO LDL/HDL (test cod e = 2238) 0.59 RATIO Eduardo MitchellCOMPREHENSIVE METABOLIC PANEL [ADDED]2023-09-24 00:00:00* Test Item Value Reference Range Interpretation Comme nts GLUCOSE (test code = 2217) 81 MG/DL BUN (test code = 2208) 12 MG/DL CREATININE (test code = 2214) 0.87 MG/DL eGFR (2020 CKD-EPI) (test code = 53721) 103 ML/MIN/1.73 CALC BUN/CREAT (test code = 2235) 14 RATIO SODIUM (test code = 2231) 142 MEQ/L POTASSIUM (test code = 2228) 4.0 MEQ/L CHLORIDE (test code = 2215) 104 MEQ/L CARBON DIOXIDE (test code = 2206) 28 MEQ/L CALCIUM (test code = 2209) 9.1 MG/DL PROTEIN, TOTAL (test code = 2229) 6.3 G/DL ALBUMIN (test code = 2201) 4.5 G/DL CALC GLOBULIN (test code = 2240) 1.8 G/DL CALC A/G RATIO (test code = 2234) 2.5 RATIO BILIRUBIN, TOTAL (test code = 2207) 0.3 MG/DL ALKALINE PHOSPHATASE (test code = 2204) 82 U/L AST (test code = 2218) 20 U/L ALT (test code = 2219) 17 U/L Eduardo MitchellHEMOGLOBIN A1c [ADDED]2023-09-24 00:00:00* Test Item Value Reference Range Interpretation Comme nts HEMOGLOBIN A1c (test code = 34176) 5.2 % Eduardo MitchellLIPID PANEL [ADDED]2023-09-24 00:00:00* Test Item Value Reference Range Interpretation Comme nts CHOLESTEROL (test code = 2210) 124 MG/DL TRIGLYCERIDES (test code = 2232) 57 MG/DL HDL CHOLESTEROL (test code = 2220) 70 MG/DL CALC LDL CHOL (test code = 2237) 41 MG/DL RISK RATIO LDL/HDL (test cod e = 2238) 0.59 RATIO Eduardo MitchellLIPID [id number] 00:00:00* Test Item Value Reference Range Interpretation Comme nts CHOLESTEROL (test code = 2210) 142 MG/DL TRIGLYCERIDES (test code = 2232) 83 MG/DL HDL CHOLESTEROL (test code = 2220) 57 MG/DL CALC LDL CHOL (test code = 2237) 68 MG/DL RISK RATIO LDL/HDL (test cod e = 2238) 1.19 RATIO Eduardo MitchellCOMPREHENSIVE METABOLIC [id number] 00:00:00* Test Item Value Reference Range Interpretation Comme nts GLUCOSE (test code = 2217) 107 MG/DL BUN (test code = 2208) 11 MG/DL CREATININE (test code = 2214) 0.88 MG/DL eGFR (2020 CKD-EPI) (test code = 70504) 103 ML/MIN/1.73 CALC BUN/CREAT (test code = [...] code = 2219) 29 U/L Eduardo MitchellHEMOGLOBIN [id number] 00:00:00* Test Item Value Reference Range Interpretation Comme nts HEMOGLOBIN A1c (test code = 68228) 5.9 % Eduardo MitchellLIPID [id number] 00:00:00* Test Item Value Reference Range Interpretation Comme nts CHOLESTEROL (test code = 2210) 142 MG/DL TRIGLYCERIDES (test code = 2232) 83 MG/DL HDL CHOLESTEROL (test code = 2220) 57 MG/DL CALC LDL CHOL (test code = 2237) 68 MG/DL RISK RATIO LDL/HDL (test cod e = 2238) 1.19 RATIO Eduardo MitchellCOMPREHENSIVE METABOLIC [id number] 00:00:00* Test Item Value Reference Range Interpretation Comme nts GLUCOSE (test code = 2217) 107 MG/DL BUN (test code = 2208) 11 MG/DL CREATININE (test code = 2214) 0.88 MG/DL eGFR (2020 CKD-EPI) (test code = 27265) 103 ML/MIN/1.73 CALC BUN/CREAT (test code = [...] code = 2219) 29 U/L Eduardo MitchellHEMOGLOBIN [id number] 00:00:00* Test Item Value Reference Range Interpretation Comme [facility] HEMOGLOBIN A1c (test code = 06176) 5.9 % Eduardo MitchellCOMPREHENSIVE METABOLIC [id number] 00:00:00* Test Item Value Reference Range Interpretation Comme nts GLUCOSE (test code = 2217) 113 MG/DL BUN (test code = 2208) 16 MG/DL CREATININE (test code = 2214) 0.91 MG/DL eGFR (2020 CKD-EPI) (test code = 49871) 101 ML/MIN/1.73 CALC BUN/CREAT (test code = [...] code = 2219) 29 U/L Eduardo MitchellHEMOGLOBIN [id number] 00:00:00* Test Item Value Reference Range Interpretation Comme nts HEMOGLOBIN A1c (test code = 07289) 6.1 % Eduardo MitchellCOMPREHENSIVE METABOLIC [id number] 00:00:00* Test Item Value Reference Range Interpretation Comme nts GLUCOSE (test code = 2217) 113 MG/DL BUN (test code = 2208) 16 MG/DL CREATININE (test code = 2214) 0.91 MG/DL eGFR (2020 CKD-EPI) (test code = 49139) 101 ML/MIN/1.73 CALC BUN/CREAT (test code = [...] code = 2219) 29 U/L Eduardo MitchellHEMOGLOBIN [id number] 00:00:00* Test Item Value Reference Range Interpretation Comme nts HEMOGLOBIN A1c (test code = 43578) 6.1 % Eduardo MitchellCOMPREHENSIVE METABOLIC [id number] 00:00:00* Test Item Value Reference Range Interpretation Comme nts GLUCOSE (test code = 2217) 118 MG/DL BUN (test code = 2208) 12 MG/DL CREATININE (test code = 2214) 0.84 MG/DL eGFR (2020 CKD-EPI) (test code = 55040) 106 ML/MIN/1.73 CALC BUN/CREAT (test code = [...] code = 2219) 55 U/L Eduardo MitchellLIPID [id number] 00:00:00* Test Item Value Reference Range Interpretation Comme nts CHOLESTEROL (test code = 2210) 152 MG/DL TRIGLYCERIDES (test code = 2232) 104 MG/DL HDL CHOLESTEROL (test code = 2220) 60 MG/DL CALC LDL CHOL (test code = 2237) 73 MG/DL RISK RATIO LDL/HDL (test cod e = 2238) 1.22 RATIO Eduardo MitchellMICROALBUMIN/CREATININE, RANDOM AND [id number] 00:00:00* Test Item Value Reference Range Interpretation Comme nts CREATININE, URINE, RANDOM (t est code = 2072) 209.6 MG/DL ALBUMIN, URINE, RANDOM (test code = 32139) 0.9 MG/DL CALC ALBUMIN/CREAT, RND (lexie t code = 42822) 4 MG/G Eduardo MitchellACUTE HEPATITIS [id number] 00:00:00* Test Item Value Reference Range Interpretation Comme nts HEPATITIS A IgM (test code = 18081) NON-REACTIVE HEPATITIS B CORE IgM (test c ode = 4644) NON-REACTIVE HEPATITIS B SURF AG (test co de = 2739) NON-REACTIVE HEPATITIS C ANTIBODY (test c ode = 4661) NON-REACTIVE INTERPRETATION HEPATITIS A: (test code = 2552) (NOTE) INTERPRETATION HEPATITIS B: (test code = 73957) (NOTE) INTERPRETATION HEPATITIS C: (test code = 44366) (NOTE) Eduardo MitchellHEMOGLOBIN [id number] 00:00:00* Test Item Value Reference Range Interpretation Comme nts HEMOGLOBIN A1c (test code = 70143) 8.8 % Eduardo MitchellCOMPREHENSIVE METABOLIC [id number] 00:00:00* Test Item Value Reference Range Interpretation Comme nts GLUCOSE (test code = 2217) 118 MG/DL BUN (test code = 2208) 12 MG/DL CREATININE (test code = 2214) 0.84 MG/DL eGFR (2020 CKD-EPI) (test code = 22042) 106 ML/MIN/1.73 CALC BUN/CREAT (test code = [...] code = 2219) 55 U/L Eduardo MitchellLIPID [id number] 00:00:00* Test Item Value Reference Range Interpretation Comme nts CHOLESTEROL (test code = 2210) 152 MG/DL TRIGLYCERIDES (test code = 2232) 104 MG/DL HDL CHOLESTEROL (test code = 2220) 60 MG/DL CALC LDL CHOL (test code = 2237) 73 MG/DL RISK RATIO LDL/HDL (test cod e = 2238) 1.22 RATIO Eduardo MitchellMICROALBUMIN/CREATININE, RANDOM AND [id number] 00:00:00* Test Item Value Reference Range Interpretation Comme nts CREATININE, URINE, RANDOM (t est code = 2072) 209.6 MG/DL ALBUMIN, URINE, RANDOM (test code = 62232) 0.9 MG/DL CALC ALBUMIN/CREAT, RND (lexie t code = 45730) 4 MG/G Eduardo MitchellACUTE HEPATITIS [id number] 00:00:00* Test Item Value Reference Range Interpretation Comme nts HEPATITIS A IgM (test code = 21850) NON-REACTIVE HEPATITIS B CORE IgM (test c ode = 4644) NON-REACTIVE HEPATITIS B SURF AG (test co de = 2739) NON-REACTIVE HEPATITIS C ANTIBODY (test c ode = 4675) NON-REACTIVE INTERPRETATION HEPATITIS A: (test code = 2552) (NOTE) INTERPRETATION HEPATITIS B: (test code = 08789) (NOTE) INTERPRETATION HEPATITIS C: (test code = 00803) (NOTE) Eduardo MitchellHEMOGLOBIN [id number] 00:00:00* Test Item Value Reference Range Interpretation Comme nts HEMOGLOBIN A1c (test code = 79761) 8.8 % Eduardo Mitchell Notes Date/Time Note Provider Source Eduardo Mitchell [facility]2024-04-25 00:00:00 Eduardo Mitchell [facility]
[2024-08-07] MEDS ORDERED: IBUPROFEN 400 MG TAB ONE (22:27)
[2024-08-07] MEDS ORDERED: ACETAMINOPHEN 500 MG TAB ONE (22:27)
--- NOTE | 2024-08-07 22:35 | RAD REPORT ---
EXAM DESCRIPTION: RAD - Chest Single View - 08/07/2024 10:26 pm CLINICAL HISTORY: COUGH Chest pain. COMPARISON: Chest Pa And Lat (2 Views) dated 11/10/2022 FINDINGS: Portable technique limits examination quality. Mild opacities in the left lung base laterally suggests mild infiltrate. The lungs are otherwise david r. The heart is normal in size. No displaced fractures. IMPRESSION: Mild infiltrate suspected left lung base laterally could be early pneumonia.
--- NOTE | 2024-08-07 23:49 | EDPHYS ---
Physician Documentation [facility] Name: Brad Cisneros Age: 54 yrs Sex: Male : 1970 Arrival Date: 08/07/2024 Time: 21:52 Bed 20 Private MD: ED Physician Jesse Rojas HPI: 08/07 22:22 This 54 yrs old Male presents to ER via Ambulatory with complaints of Fever, ec2 Sore Throat. 22:22 Patient with history of mental health issues arrives today for URI signs symptoms ec2 ongoing for several days. Patient is having cough and congestion, productive sputum, sore throat. Fevers at home with improvement with Tylenol. No vomiting, diarrhea.. Historical: - Allergies: 22:15 No Known Allergies; bm8 - Home Meds: 22:15 olanzapine 20 mg oral tablet [Active]; atorvastatin 10 mg oral tablet 1 tab every day bm8 at bedtime [Active]; divalproex 500 mg oral Tablet, Extended Release 24 hr 3 tabs daily [Active]; Risperdal 3 mg Oral tablet [Active]; lisinopril 10 mg Oral tablet [Active]; - Immunization history:: Adult Immunizations up to date. - Infectious Disease History:: Denies. - Social history:: Smoking status: Patient denies any tobacco usage or history of. ROS: 22:22 Constitutional: as per hpi ec2 Exam: 22:22 Constitutional: GEN: NAD Head: atraumatic Eyes: EOMI Ears: External ears are normal. ec2 Mouth: Posterior oropharynx is clear, erythema noted. CV: regular rate LUNGS: no respiratory distress ABD: non-distended SKIN: no evidence of rashes MSK: no evidence of trauma Vital Signs: 22:13 BP 111 / 70; Pulse 92; Resp 17; Temp 101.4; Pulse Ox 95% ; Weight 65.77 kg; Height 5 bm8 ft. 4 in. ; Pain 8/10; 22:40 BP 117 / 69; Pulse 89; Pulse Ox 97% ; ec2 23:00 BP 104 / 66; Pulse 84; Resp 17; Temp 101.4; Pulse Ox 97% ; Pain 7/10; bm8 08/08 00:03 BP 105 / 70; Pulse 106; Resp 17; Temp 99.1; Pulse Ox 95% ; Pain 0/10; bm8 08/07 22:13 Body Mass Index 24.89 (65.77 kg, 162.56 cm) bm8 08/07 22:13 Pain Scale: Adult bm8 23:00 Pain Scale: Adult bm8 08/08 00:03 Pain Scale: Adult bm8 [place] Coma Score: 08/07 23:00 Eye Response: spontaneous(4). Motor Response: obeys commands(6). Verbal Response: bm8 oriented(5). Total: 15. 08/08 00:03 Eye Response: spontaneous(4). Motor Response: obeys commands(6). Verbal Response: bm8 oriented(5). Total: 15. MDM: 08/07 22:02 Patient medically screened. ec2 22:22 Data reviewed: vital signs. ED course: Patient arrives today for URI signs and ec2 symptoms. Examination remarkable for HEENT findings as noted above. Will obtain viral swab, chest x-ray. . 22:49 ED course: Patient not agreeable to [employer] swab, instructed family that I would not force ec2 this adult to undergo viral swab. Also this would not be management changing.. 23:48 ED course: Possible infiltrate on x-ray, will start the patient on Augmentin for ec2 possible pneumonia. Will discharge home, patient without any respiratory distress, patient without hypoxia. Return precautions given. . 08/07 22:26 Order name: Strep; Complete Time: 23:48 ec2 08/07 23:13 Order name: Throat Culture [facility] 08/07 22:14 Order name: CXR XRAY; Complete Time: 22:36 ec2 08/07 23:47 Order name: Vital Signs; Complete Time: 00:03 ec2 Administered Medications: 22:36 Drug: Acetaminophen PO 1000 mg PO once Route: PO; bm8 22:50 Follow up: Response: No adverse reaction bm8 22:36 Drug: Ibuprofen PO 800 mg PO once Route: PO; bm8 22:47 Follow up: Response: No adverse reaction bm8 08/08 00:02 Drug: Amoxicillin-Clavulanate PO 875 mg PO once Route: PO; bm8 00:03 Follow up: Response: Medication Administered at Departure bm8 Disposition Summary: 08/07/24 23:48 Discharge Ordered Notes: Location: Home ec2 Condition: Stable ec2 Diagnosis - Unspecified bacterial pneumonia ec2 Followup: ec2 - With: Private Physician - When: - Reason: Re-evaluation by your physician Discharge Instructions: - Discharge Summary Sheet ec2 - Community-Acquired Pneumonia, Adult, [id number] ec2 Forms: - Medication Reconciliation Form ec2 - Antibiotic Education ec2 - Prescription Opioid Use ec2 - Patient Portal Instructions ec2 - Leadership Thank You Letter ec2 Prescriptions: - Augmentin 875-125 mg Oral Tablet - take 1 tablet ORAL route every 12 hours for 10 days; 20 tablet; Refills: 0, ec2 Product Selection Permitted Signatures: Dispatcher [employer] EDMS Jesse Rojas MD MD ec2 Pranay Downey RN RN bm8 Corrections: (The following items were deleted from the chart) 08/07 22:15 22:15 Influenza Screen (A \T\ B)+BA.LAB.BRZ ordered. EDMS EDMS 22:15 22:15 SARS-COV-2 Antigen Rapid+I.LAB.BRZ ordered. EDMS EDMS 22:15 22:15 Chest Single View+RAD.RAD.BRZ ordered. EDMS EDMS 22:18 22:15 PMHx: diabetes mellitus; bm8 bm8 22:18 22:15 PMHx: Hypertensive disorder; bm8 bm8 22:18 22:15 PMHx: Schizophrenia; bm8 bm8
--- NOTE | 2024-08-07 23:49 | ER ---
Nurse's Notes [facility] Name: Brad Cisneros Age: 54 yrs Sex: Male : 1970 Arrival Date: 08/07/2024 Time: 21:52 Bed 20 Private MD: Diagnosis: Unspecified bacterial pneumonia Presentation: 08/07 22:13 Chief complaint: Spouse and/or significant other states: pt report fever, chills and bm8 sore throat since . Cough with phlegm coming up. Coronavirus screen: chills, congestion, cough unrelated to allergies, fever. Ebola Screen: Patient negative for fever greater than or equal to 101.5 degrees Fahrenheit, and additional compatible Ebola Virus Disease symptoms Patient denies exposure to infectious person. Patient denies travel to an Ebola-affected area in the 21 days before illness onset. No symptoms or risks identified at this time. Initial Sepsis Screen: Does the patient meet any 2 criteria? Temp <36.0*C (96.8*F)) or > 38.3*C (100.9*F). HR > 90 bpm. Yes Does the patient have a suspected source of infection? No. Patient's initial sepsis screen is negative. Risk Assessment: Do you want to hurt yourself or someone else? Patient reports no desire to harm self or others. Onset of symptoms was August 04, 2024. 22:13 Method Of Arrival: Ambulatory bm8 22:13 Acuity: MAURICE 4 bm8 Triage Assessment: 22:15 General: Appears in no apparent distress. uncomfortable, Behavior is calm, cooperative, bm8 appropriate for age. Pain: Complains of pain in throat Pain currently is 8 out of 10 on a pain scale. Quality of pain is described as burning. EENT: Throat is reddened has enlarged tonsils bilaterally with gag reflex present. Cardiovascular: Denies chest pain, Capillary refill < 3 seconds Patient's skin is warm and dry. Respiratory: Reports cough that is productive, Airway is patent Trachea midline Respiratory effort is even, unlabored, Respiratory pattern is regular, symmetrical. GI: No signs and/or symptoms were reported involving the gastrointestinal system. : No signs and/or symptoms were reported regarding the genitourinary system. Derm: No signs and/or symptoms reported regarding the dermatologic system. Musculoskeletal: No signs and/or symptoms reported regarding the musculoskeletal system. Historical: - Allergies: 22:15 No Known Allergies; bm8 - Home Meds: 22:15 olanzapine 20 mg oral tablet [Active]; atorvastatin 10 mg oral tablet 1 tab every day bm8 at bedtime [Active]; divalproex 500 mg oral Tablet, Extended Release 24 hr 3 tabs daily [Active]; Risperdal 3 mg Oral tablet [Active]; lisinopril 10 mg Oral tablet [Active]; - Immunization history:: Adult Immunizations up to date. - Infectious Disease History:: Denies. - Social history:: Smoking status: Patient denies any tobacco usage or history of. Screenin:37 [facility] ED Fall Risk Assessment (Adult) History of falling in the last 3 months, bm8 including since admission No falls in past 3 months (0 pts) Confusion or Disorientation No (0 pts) Intoxicated or Sedated No (0 pts) Impaired Gait No (0 pts) Mobility Assist Device Used No (0 pt) Altered Elimination No (0 pt) Score/Fall Risk Level 0 - 2 = Low Risk Oriented to surroundings, Maintained a safe environment, Educated pt \T\ family on fall prevention, incl call for assistance when getting out of bed, Assessed \T\ reinforced patient's understanding of fall precautions, Hourly rounding (assess needs \T\ fall precautionary measures) done, Used ambulatory aids as needed (educated on \T\ assisted with), Used gait belt as appropriate. Abuse screen: Denies threats or abuse. Nutritional screening: No deficits noted. Tuberculosis screening: No symptoms or risk factors identified. Assessment: 22:36 Reassessment: pt refused flu and covid swabs. bm8 22:57 Reassessment: Patient appears in no apparent distress at this time. No changes from bm8 previously documented assessment. Patient and/or family updated on plan of care and expected duration. Pain level reassessed. Patient is alert, oriented x 3, equal unlabored respirations, skin warm/dry/pink. pt is lying in bed resp are even unlabored at this time. when asked about pain pt points to throat. aa0x3 skin is hot to touch. General: Appears in no apparent distress. comfortable, Behavior is calm, cooperative, appropriate for age. Pain: Complains of pain in throat Pain currently is 7 out of 10 on a pain scale. Quality of pain is described as burning. Neuro: No deficits noted. Level of Consciousness is awake, alert, obeys commands, Oriented to person, place, time, situation, Appropriate for age. Cardiovascular: Denies chest pain, Capillary refill < 3 seconds in bilateral fingers toes Patient's skin is warm and dry. Respiratory: Airway is patent Respiratory effort is even, unlabored, Respiratory pattern is regular, symmetrical, Breath sounds are clear bilaterally. GI: No signs and/or symptoms were reported involving the gastrointestinal system. : No signs and/or symptoms were reported regarding the genitourinary system. 08/08 00:03 Reassessment: Patient appears in no apparent distress at this time. Patient and/or bm8 family updated on plan of care and expected duration. Pain level reassessed. Patient is alert, oriented x 3, equal unlabored respirations, skin warm/dry/pink. Patient states feeling better. Patient states symptoms have improved. Vital Signs: 08/07 22:13 BP 111 / 70; Pulse 92; Resp 17; Temp 101.4; Pulse Ox 95% ; Weight 65.77 kg; Height 5 bm8 ft. 4 in. ; Pain 8/10; 22:40 BP 117 / 69; Pulse 89; Pulse Ox 97% ; ec2 23:00 BP 104 / 66; Pulse 84; Resp 17; Temp 101.4; Pulse Ox 97% ; Pain 7/10; 8 08/08 00:03 BP 105 / 70; Pulse 106; Resp 17; Temp 99.1; Pulse Ox 95% ; Pain 0/10; 8 08/07 22:13 Body Mass Index 24.89 (65.77 kg, 162.56 cm) [facility] 08/07 22:13 Pain Scale: Adult bm8 23:00 Pain Scale: Adult bm8 08/08 00:03 Pain Scale: Adult bm8 [place] Coma Score: 08/07 23:00 Eye Response: spontaneous(4). Motor Response: obeys commands(6). Verbal Response: bm8 oriented(5). Total: 15. 08/08 00:03 Eye Response: spontaneous(4). Motor Response: obeys commands(6). Verbal Response: bm8 oriented(5). Total: 15. ED Course: 08/07 21:55 Patient arrived in ED. ra3 21:57 Jesse Rojas MD is Attending Physician. ec2 22:13 Pranay Downey, RN is Primary Nurse. bm8 22:15 Triage completed. bm8 22:15 Arm band placed on right wrist. bm8 22:30 CXR XRAY In Process Unspecified. EDMS 22:37 Patient has correct armband on for positive identification. Bed in low position. Call bm8 light in reach. Side rails up X 1. Adult w/ patient. Client placed on continuous cardiac and pulse oximetry monitoring. NIBP monitoring applied. monitoring specialist on. Pulse ox on. NIBP on. Door closed. Noise minimized. Pillow given. Verbal reassurance given. Head of bed lowered. 22:37 No provider procedures requiring assistance completed. bm8 23:00 Patient did not have IV access during this emergency room visit. bm8 08/08 00:03 Provided Education on: post er care. bm8 Administered Medications: 08/07 22:36 Drug: Acetaminophen PO 1000 mg PO once Route: PO; bm8 22:50 Follow up: Response: No adverse reaction bm8 22:36 Drug: Ibuprofen PO 800 mg PO once Route: PO; bm8 22:47 Follow up: Response: No adverse reaction bm8 08/08 00:02 Drug: Amoxicillin-Clavulanate PO 875 mg PO once Route: PO; bm8 00:03 Follow up: Response: Medication Administered at Departure bm8 Medication: 08/07 23:00 VIS not applicable for this client. bm8 Outcome: 23:48 Discharge ordered by . ec2 08/08 00:03 Discharged to home ambulatory, bm8 Condition: stable Discharge instructions given to patient, Instructed on discharge instructions, follow up and referral plans. medication usage, safety practices, Demonstrated understanding of instructions, follow-up care, medications, Prescriptions given X 1, 00:04 Patient left the ED. bm8 Signatures: Dispatcher [employer] EDAK Jesse Rojas MD MD ec2 [place] ra3 Pranay Downye, RN RN bm8 Corrections: (The following items were deleted from the chart) 08/07 22:18 22:15 PMHx: diabetes mellitus; bm8 bm8 22:18 22:15 PMHx: Hypertensive disorder; bm8 bm8 22:18 22:15 PMHx: Schizophrenia; bm8 bm8
[2024-08-07] MEDS ORDERED: AMOX/K CLAV 875 MG TAB ONE (23:53)
[2024-08-08 00:19] VITALS: BP 105/70; TEMP 99.1; O2SAT 95
== END 2024-08-08 00:04 | disposition home or self-care (01) ==
LOC: ER 21:52
DX: J15.9 Unspecified bacterial pneumonia (principal)
CPT/HCPCS: 71045; 87070; 87081; 99284